=== PATIENT | male | born 1950 | race Asian ===

== ENCOUNTER 2019-01-05 05:14 | Emergency (ER) | payer MEDICARE, OTHER ==
[~2019-01-05] VITALS: Ht 165.1 cm; Wt 65.8 kg
[2019-01-05 05:17] VITALS: Ht 165.1 cm; Wt 65.8 kg
[2019-01-05] MEDS ORDERED: ONDANSETRON 4 MG INJ IV STA (06:07)
[2019-01-05] MEDS ORDERED: morphine 2 MG INJ IV STA (06:07)
[2019-01-05] MEDS ORDERED: IOHEXOL 300MG/ML 150 ML BTL ONE (07:38)
[2019-01-05] MEDS ORDERED: SOD CHLORIDE 0.9% 100 ML ONE (07:38)
[2019-01-05 08:16] VITALS: BP 133/84; PULSE 78; RESP 18
--- NOTE | 2019-01-05 08:27 | ERD ---
ER Documentation Chief Complaint Chief Complaint LEFT LOWER BACK PAIN, DYSURIA, URINARY FREQUENCY X'S 1 WEEK HPI 68-year-old male presents with his son for evaluation of flank pain back pain. According to the patient, over the last week, patient has had a nonspecific left lower back and flank pain. The pain occasionally radiates to his abdomen. Pain is associated with dysuria and urinary frequency. Patient reports no hematuria. Patient has had no fevers or chills or vomiting. Patient has had no diarrhea. The pain is nonspecific and rated as mild to moderate. Patient has had a previous abdominal aortic aneurysm repair and he was concerned that his symptoms might be related to this despite having previous evaluations of the aneurysm that was apparently normal postoperatively. ROS All systems reviewed and are negative except as per history of present illness. Allergies Allergies: Coded Allergies: No Known Allergy (Unverified , 01/05/19) PMhx/Soc History of Surgery: Yes (RT KNEE SX, ABDOMINAL ANEURYSM SX) Anesthesia Reaction: No Hx Neurological Disorder: No Hx Respiratory Disorders: No Hx Cardiac Disorders: Yes (HTN) Hx Psychiatric Problems: No Hx Miscellaneous Medical Probl: No Hx Alcohol Use: No Hx Substance Use: No Hx Tobacco Use: No Smoking Status: Never smoker FmHx Noncontributory for chief complaint Physical Exam Vitals Vital Signs Date Temp Pulse Resp B/P (MAP) Pulse Ox O2 O2 Flow FiO2 Time Delivery Rate 01/05/19 78 18 133/84 97 Room Air 08:16 (100) 01/05/19 97.8 18 148/81 96 Room Air 06:14 (103) 01/05/19 97.8 101 18 155/86 96 05:17 (109) Physical Exam GENERAL: The patient is well developed and appropriate for usual state of health in no apparent distress HEENT: Pupils equal, round, and reactive to light. EOMI. There is no scleral icterus. NECK: C-spine is soft and supple, there is no meningismus. There is no cervical lymphadenopathy. LUNGS: Clear to auscultation bilaterally. There are no rales, wheezes or rhonchi. HEART: Regular rate and rhythm, no murmurs, clicks, rubs or gallops. ABDOMEN: Soft, non-tender, non-distended. There are bowel sounds in all four quadrants. No rebound or guarding. No CVA tenderness EXTREMITIES: There is no peripheral cyanosis or edema. No focal swelling or erythema. NEURO: The patient moves all four extremities with 5/5 strength. Cranial nerves II - XII are intact. Normal gait. Alert and oriented SKIN: There is no apparent rash or petechiae. HEME/LYMPHATIC: There is no evidence of excessive bruising or lymphedema. PSYCHIATRIC: The patient does not appear anxious or depressed. Pulses: 2+ and equal bilaterally. Patient has vascular scar noted in the inguinal area. Result Diagram: 01/05/1930 01/05/19 0630 Results 24 hrs Laboratory Tests Test 01/05/19 06:30 White Blood Count 6.2 10^3/ul Red Blood Count 6.05 10^6/ul Hemoglobin 12.3 g/dl Hematocrit 38.7 % Mean Corpuscular Volume 64.0 fl Mean Corpuscular Hemoglobin 20.3 pg Mean Corpuscular Hemoglobin Concent 31.8 g/dl Red Cell Distribution Width 15.3 % Platelet Count 226 10^3/UL Mean Platelet Volume 10.1 fl Immature Granulocytes % 0.300 % Neutrophils % 67.4 % Lymphocytes % 24.8 % Monocytes % 6.7 % Eosinophils % 0.3 % Basophils % 0.5 % Nucleated Red Blood Cells % 0.0 /100WBC Immature Granulocytes # 0.020 10^3/ul Neutrophils # 4.2 10^3/ul Lymphocytes # 1.6 10^3/ul Monocytes # 0.4 10^3/ul Eosinophils # 0.0 10^3/ul Basophils # 0.0 10^3/ul Nucleated Red Blood Cells # 0.0 10^3/ul Prothrombin Time 12.3 Sec Prothrombin Time Ratio 1.0 INR International Normalized Ratio 0.90 Activated Partial Thromboplast Time 35.2 Sec Urine Color STRAW Urine Clarity CLEAR Urine pH 6.0 Urine Specific [place] 1.003 Urine Ketones TRACE mg/dL Urine Nitrite NEGATIVE mg/dL Urine Bilirubin NEGATIVE mg/dL Urine Urobilinogen NEGATIVE mg/dL Urine Leukocyte Esterase NEGATIVE [place]abela/ul Urine Hemoglobin NEGATIVE mg/dL Urine Glucose NEGATIVE mg/dL Urine Total Protein NEGATIVE mg/dl Sodium Level 136 mmol/L Potassium Level 3.3 mmol/L Chloride Level 98 mmol/L Carbon Dioxide Level 25 mmol/L Anion Gap 13 Blood Urea Nitrogen 12 mg/dl Creatinine 0.92 mg/dl Est Glomerular Filtrat Rate mL/min > 60 mL/min Glucose Level 145 mg/dl Calcium Level 9.8 mg/dl Total Bilirubin 1.0 mg/dl Direct Bilirubin 0.00 mg/dl Indirect Bilirubin 1.0 mg/dl Aspartate Amino Transf (AST/SGOT) 33 IU/L Alanine Aminotransferase (ALT/SGPT) 30 IU/L Alkaline Phosphatase 64 IU/L Troponin I < 0.012 ng/ml Total Protein 8.1 g/dl Albumin 4.6 g/dl Globulin 3.50 g/dl Albumin/Globulin Ratio 1.31 Lipase 147 U/L Current Medications Medications Dose Sig/Alayna Start Time Status Last (Trade) Ordered Route PRN Stop Time Admin Dose Reason Admin Morphine 2 mg ONCE STAT 01/05/19 DC 01/05/19 Sulfate IV 06:07 01/05/19 06:23 (morphine) 06:10 Ondansetron 4 mg ONCE STAT 01/05/19 DC 01/05/19 HCl (Zofran IV 06:07 01/05/19 06:23 Inj) 06:10 Iohexol 150 ml STK-MED 01/05/19 DC (Omnipaque ONCE .ROUTE 07:38 01/05/19 300mg/ ml) 07:39 Sodium 100 ml @ ud STK-MED 01/05/19 DC Chloride ONCE .ROUTE 07:38 01/05/19 07:39 Procedures/MDM Patient was taken to a room, seen and evaluated. Comfort measures were initiated. Diagnostic tests were ordered and reviewed. 3 LEAD RHYTHM STRIP: Normal sinus rhythm without ectopy EK lead EKG reviewed by myself: Normal Sinus Rhythm Left axis deviation, LVH Nonspecific ST and T wave changes without significant ST elevation Impression: Nonspecific EKG without evidence of obvious ischemia RADIOLOGY: Reviewed with the radiologist REEVALUATION: 0825: Diagnostic tests were appreciated. Serial examinations of the patient showed that he remained comfortable and hemodynamically stable MEDICAL DECISION MAKIN-year-old male with an extensive history of an aorta abdominal aortic aneurysm repair presents with flank pain of uncertain etiology with a number of other nonspecific symptoms. His diagnostic work-up focused on concerns regarding the aneurysm as well as other kidney infection, kidney stone and other issues. At this time, his diagnostic tests including his imaging st udies and labs demonstrate no evidence of urinary tract infection or kidney stone. Patient has no evidence of aneurysm at this time on his CT scan which demonstrates a patent graft and no signs of endoleak. Overall, patient is reassured, clinically well and is appropriate for outpatient supportive care at this time. Departure Diagnosis: Primary Impression: Flank pain Condition: Stable Patient Instructions: Flank Pain, Uncertain Cause Additional Instructions: See your doctor for follow-up as discussed. Take a copy of your test results, if appropriate, to this follow-up visit. See your doctor or return here if your symptoms do not improve as expected. At any time, please return to the emergency department for any change or worsening in her symptoms. KERRIE MELGAR Jan 05, 2019 08:27
== END 2019-01-05 08:42 | disposition home or self-care (01) ==
LOC: FTE 05:14 → E/R 08:42
DX: R10.9 Unspecified abdominal pain (principal); I10 Essential (primary) hypertension
CPT/HCPCS: 36415; 71045; 74177; 80053; 81003; 83690; 84484; 85025; 85610; 85730; 93005; 96374; 96375; 99285; J2270; J2405; Q9967

== ENCOUNTER 2019-01-07 22:21 | Emergency (ER) | payer MEDICARE, OTHER ==
[~2019-01-07] VITALS: Ht 162.6 cm; Wt 68.1 kg
[2019-01-07 22:22] VITALS: Ht 162.6 cm; Wt 68.1 kg
--- NOTE | 2019-01-07 23:53 | ERD ---
ER Documentation Chief Complaint Chief Complaint Nocturia HPI The patient is a 68-year-old male, presenting to the ER because of nocturia, constipation, denies fever, chills, neck pain, chest pain, dyspnea, abdominal pain, vomiting. He was seen 2 days ago for abdominal pain, had an unremarkable CT with IV contrast of abdomen/pelvis. He does not smoke nor drink. He was recently started on medication for BPH Past medical history: Hypertension, GERD, BPH Past surgical history: Right knee arthroscopy, abdominal aortic aneurysm repair ROS All systems reviewed and are negative except as per history of present illness. Medications Home Meds Active Scripts Polyethylene Glycol* (Miralax*) 17 Gm Powd.pack, 17 GM PO DAILY, #7 Prov:LINSEY CHURCH MD 01/08/19 Allergies Allergies: Coded Allergies: No Known Allergy (Unverified , 01/08/19) PMhx/Soc History of Surgery: Yes (RT KNEE SX, ABDOMINAL ANEURYSM REPAIR) Anesthesia Reaction: No Hx Neurological Disorder: No Hx Respiratory Disorders: No Hx Cardiac Disorders: Yes (HTN) Hx Psychiatric Problems: No Hx Miscellaneous Medical Probl: No Hx Alcohol Use: No Hx Substance Use: No Hx Tobacco Use: No Smoking Status: Never smoker Physical Exam Vitals Vital Signs Date Temp Pulse Resp B/P (MAP) Pulse Ox O2 O2 Flow FiO2 Time Delivery Rate 01/08/19 56 12 124/75 98 Room Air 01:56 (91) 01/07/19 97.0 64 18 143/82 98 22:22 (102) Physical Exam Const: No acute distress. Head: Atraumatic. Eyes: Normal Conjunctiva. ENT: Normal External Ears, Nose and Mouth. Neck: Full range of motion. No meningismus. Resp: Clear to auscultation bilaterally. Cardio: Regular rate and rhythm. Abd: Soft, non distended, normal bowel sounds, normal suprapubic discomfort, no right lower quadrant/right upper quadrant/epigastric/CVA tenderne ss Skin: No petechiae or rashes. Back: No midline or flank tenderness. Ext: No cyanosis, or edema. Neur: Awake and alert. No focal deficit Psych: Normal Mood and Affect. Result Diagram: 01/08/19 0020 01/08/19 0020 Results 24 hrs Laboratory Tests Test 01/08/19 00:20 01/08/19 00:35 White Blood Count 7.8 10^3/ul Red Blood Count 6.24 10^6/ul Hemoglobin 12.4 g/dl Hematocrit 39.9 % Mean Corpuscular Volume 63.9 fl Mean Corpuscular Hemoglobin 19.9 pg Mean Corpuscular Hemoglobin Concent 31.1 g/dl Red Cell Distribution Width 15.6 % Platelet Count 232 10^3/UL Mean Platelet Volume 9.7 fl Immature Granulocytes % 0.300 % Neutrophils % 56.2 % Lymphocytes % 34.6 % Monocytes % 7.7 % Eosinophils % 0.8 % Basophils % 0.4 % Nucleated Red Blood Cells % 0.0 /100WBC Immature Granulocytes # 0.020 10^3/ul Neutrophils # 4.4 10^3/ul Lymphocytes # 2.7 10^3/ul Monocytes # 0.6 10^3/ul Eosinophils # 0.1 10^3/ul Basophils # 0.0 10^3/ul Nucleated Red Blood Cells # 0.0 10^3/ul Sodium Level 132 mmol/L Potassium Level 3.5 mmol/L Chloride Level 93 mmol/L Carbon Dioxide Level 29 mmol/L Anion Gap 10 Blood Urea Nitrogen 11 mg/dl Creatinine 0.84 mg/dl Est Glomerular Filtrat Rate mL/min > 60 mL/min Glucose Level 130 mg/dl Calcium Level 9.8 mg/dl Total Bilirubin 1.2 mg/dl Direct Bilirubin 0.00 mg/dl Indirect Bilirubin 1.2 mg/dl Aspartate Amino Transf (AST/SGOT) 31 IU/L Alanine Aminotransferase (ALT/SGPT) 27 IU/L Alkaline Phosphatase 58 IU/L Total Protein 8.0 g/dl Albumin 4.6 g/dl Globulin 3.40 g/dl Albumin/Globulin Ratio 1.35 Lipase 313 U/L Bedside Urine pH (LAB) 7.0 Bedside Urine Protein (LAB) Negative Bedside Urine Glucose (UA) Negative Bedside Urine Ketones (LAB) Negative Bedside Urine Blood Trace-intact Bedside Urine Nitrite (LAB) Negative Bedside Urine Leukocyte Esterase (L Negative Current Medications Medications Dose Sig/Alayna Start Time Status Last (Trade) Ordered Route PRN Stop Time Admin Dose Reason Admin Bisacodyl 10 mg ONCE ONCE 01/08/19 DC 01/08/19 (Dulcolax [place] 00:30 00:30 Supp) 01/08/19 00:31 Procedures/MDM MEDICAL MAKING DECISION: The patient is a 68-year-old male, presenting with acute nocturia, most likely due to BPH, constipation. He was treated with Dulcolax suppository with good response and is stable for present follow-up The differential diagnoses considered include but are not limited to AAA leakage, cholelithiasis, cholecystitis, choledocholithiasis, cholangitis, pancreatitis, hepatitis, gastritis, peptic ulcer disease, gastric ulcer, appendicitis, cystitis, diverticulitis, partial small bowel obstruction. Departure Diagnosis: Primary Impression: Constipation Additional Impressions: BPH (benign prostatic hyperplasia) Anemia Condition: Good Comments He was discharged with MiraLAX I discussed the findings with the patient. I advised the patient to follow-up with the primary physician in about 1-2 days, sooner if needed and return if any concern. Disclaimer: Inadvertent spelling and grammatical errors are likely due to EHR/dictation software use and do not reflect on the overall quality of patient care. Also, please note that the electronic time recorded on this note does not necessarily reflect the actual time of the patient encounter. LINSEY CHURCH MD Jan 07, 2019 23:53
[2019-01-08] MEDS ORDERED: BISACODYL 10 MG SUPP PR ONE (00:30)
[2019-01-08] MEDS ORDERED: POLY17PO6 PO (02:51)
[2019-01-08] MEDS ORDERED: ATEN-51 PO (03:11)
[2019-01-08] MEDS ORDERED: LOSA100T15 PO (03:11)
[2019-01-08] MEDS ORDERED: NIFE30TA43 PO (03:11)
[2019-01-08] MEDS ORDERED: HYDR25TA6 PO (03:11)
[2019-01-08] MEDS ORDERED: TAMS-14 PO (03:11)
[2019-01-08 03:19] VITALS: BP 124/75; PULSE 60; RESP 19
== END 2019-01-08 03:20 | disposition home or self-care (01) ==
LOC: E/R 22:21
DX: K59.00 Constipation, unspecified (principal); I10 Essential (primary) hypertension; D64.9 Anemia, unspecified; N40.0 Benign prostatic hyperplasia without lower urinary tract symptoms; R40.2142 Coma scale, eyes open, spontaneous, at arrival to emergency department; R40.2362 Coma scale, best motor response, obeys commands, at arrival to emergency department; R40.2252 Coma scale, best verbal response, oriented, at arrival to emergency department
CPT/HCPCS: 36415; 80053; 81003; 83690; 85025; 99283

== ENCOUNTER 2019-01-08 18:12 | Inpatient (IN) | payer MEDICARE, OTHER ==
[~2019-01-08] VITALS: Ht 170.2 cm; Wt 72.0 kg
[~2019-01-08 18:12] MED LIST: ATEN-51 PO; HYDR25TA6 PO; LOSA100T15 PO; NIFE30TA43 PO; POLY17PO6 PO; TAMS-14 PO
[2019-01-08 18:31] VITALS: Ht 170.2 cm; Wt 72.0 kg
[2019-01-08] MEDS ORDERED: SOD CHLORIDE 0.9% 1,000 ML IV STA (18:44)
--- NOTE | 2019-01-08 18:50 | ERD ---
ER Documentation Chief Complaint Chief Complaint c/o dizziness , diff breathing , fall @ home this morning hemtoma on chin HPI 68-year-old male with a history of hypertension presenting after a syncopal episode at home. He was found by on the floor, unresponsive. She woke him up and he stated that he was feeling a headache and dizziness prior to passing out. He has been feeling this way for the past few days. He has already been seen in the ER twice prior to this. His last visit was yesterday. He states that he has been feeling dizzy and nauseated with few episodes of nonbloody vomiting. He has also complained of constipation with difficulty having a bowel movement for the past 5 days. He denies any recent fevers or chills. No associated chest pain, shortness of breath, abdominal pain, dysuria, or hematuria. No melena or hematochezia. ROS All systems reviewed and are negative except as per history of present illness. Medications Home Meds Active Scripts Polyethylene Glycol* (Miralax*) 17 Gm Powd.pack, 17 GM PO DAILY, #7 Prov:LINSEY CHURCH MD 01/08/19 Reported Medications Nifedipine* (Adalat CC*) 30 Mg Tablet.sa, 30 MG PO DAILY for 30 Days, #30 TAB 01/08/19 Atenolol* (Atenolol*) 25 Mg Tablet, 25 MG PO DAILY for 90 Days, #90 TAB 01/08/19 Losartan Potassium* (Losartan Potassium*) 100 Mg Tablet, 100 MG PO DAILY for 90 Days, #90 TAB 01/08/19 Tamsulosin Hcl* (Flomax*) 0.4 Mg Cap.er.24h, 0.4 MG PO QHS for 90 Days, #90 01/08/19 Hydrochlorothiazide* (Hydrochlorothiazide*) 25 Mg Tab, 25 MG PO DAILY for 90 Days, #90 TAB 01/08/19 Allergies Allergies: Coded Allergies: No Known Allergy (Unverified , 01/08/19) PMhx/Soc History of Surgery: Yes (RT KNEE SX, ABDOMINAL ANEURYSM REPAIR) Anesthesia Reaction: No Hx Neurological Disorder: No Hx Respiratory Disorders: No Hx Cardiac Disorders: Yes (HTN) Hx Psychiatric Problems: No Hx Miscellaneous Medical Probl: No Hx Alcohol Use: No Hx Substance Use: No Hx Tobacco Use: No Smoking Status: Never smoker FmHx Family History: No diabetes Physical Exam Vitals Vital Signs Date Temp Pulse Resp B/P (MAP) Pulse Ox O2 O2 Flow FiO2 Time Delivery Rate 01/08/19 71 16 149/98 99 Room Air 21:15 (115) 01/08/19 98.1 74 18 149/98 98 18:31 (115) Physical Exam Const: No acute distress Head: Atraumatic Eyes: Normal Conjunctiva, PERRLA, EOMI, no nystagmus. No periorbital ecchymosis ENT: Nose nontender. No facial tenderness to palpation. Contusion to the right chin with no significant tenderness of the mandible. No trismus. normal jaw opening and closing. No dental, lip, tongue injury noted. Neck: Full range of motion. No meningismus. No C-spine tenderness Resp: Clear to auscultation bilaterally Cardio: Regular rate and rhythm, no murmurs. 2+ distal pulses in all 4 extremities Abd: Soft, non tender, non distended. Normal bowel sounds Skin: No petechiae or rashes Back: No midline or flank tenderness Ext: No cyanosis, or edema. Normal to inspection and palpation without evid ence of trauma Neur: Awake and alert, oriented x3, normal speech, cranial nerves intact, strength and sensations intact in all 4 extremities. Psych: Normal Mood and Affect Result Diagram: 01/08/19185201/08/191851 Results 24 hrs Laboratory Tests Test 01/08/19 18:52 01/08/19 18:53 Sodium Level 127 mmol/L Potassium Level 3.4 mmol/L Chloride Level 90 mmol/L Carbon Dioxide Level 25 mmol/L Anion Gap 12 Blood Urea Nitrogen 13 mg/dl Creatinine 0.94 mg/dl Est Glomerular Filtrat Rate mL/min > 60 mL/min Glucose Level 189 mg/dl Calcium Level 9.4 mg/dl Troponin I < 0.012 ng/ml White Blood Count 9.6 10^3/ul Red Blood Count 5.93 10^6/ul Hemoglobin 11.9 g/dl Hematocrit 37.4 % Mean Corpuscular Volume 63.1 fl Mean Corpuscular Hemoglobin 20.1 pg Mean Corpuscular Hemoglobin Concent 31.8 g/dl Red Cell Distribution Width 14.9 % Platelet Count 206 10^3/UL Mean Platelet Volume 9.8 fl Immature Granulocytes % 0.300 % Neutrophils % 73.4 % Lymphocytes % 18.7 % Monocytes % 7.4 % Eosinophils % 0.1 % Basophils % 0.1 % Nucleated Red Blood Cells % 0.0 /100WBC Immature Granulocytes # 0.030 10^3/ul Neutrophils # 7.1 10^3/ul Lymphocytes # 1.8 10^3/ul Monocytes # 0.7 10^3/ul Eosinophils # 0.0 10^3/ul Basophils # 0.0 10^3/ul Nucleated Red Blood Cells # 0.0 10^3/ul Urine Color COLORLESS Urine Clarity CLEAR Urine pH 7.0 Urine Specific [place] 1.002 Urine Ketones NEGATIVE mg/dL Urine Nitrite NEGATIVE mg/dL Urine Bilirubin NEGATIVE mg/dL Urine Urobilinogen NEGATIVE mg/dL Urine Leukocyte Esterase NEGATIVE [place]abela/ul Urine Hemoglobin NEGATIVE mg/dL Urine Glucose NEGATIVE mg/dL Urine Total Protein NEGATIVE mg/dl Current Medications Medications Dose Sig/Alayna Start Time Status Last (Trade) Ordered Route PRN Stop Time Admin Dose Reason Admin Sodium 1,000 ml @ Q1H STAT 01/08/19 DC 01/08/19 Chloride 1,000 mls/hr IV 18:44 18:44 01/08/19 19:43 Ondansetron 4 mg ER BRIDGE 01/08/19 DC HCl (Zofran PRN IV 20:00 Inj) NAUSEA/VOMITI 01/08/19 20:55 NG 650 mg ER BRIDGE 01/08/19 DC Acetaminophen PRN PO 20:00 (Tylenol .MILD PAIN 01/08/19 20:55 Tab) 1-3 OR TEMP Sodium 1,000 ml @ [id number] IV 01/08/19 Chloride 75 mls/hr 20:44 IV Flush 3 ml PER 01/08/19 (NS 3 ml) PROTOCOL IV 21:00 Ondansetron 4 mg Q6H PRN 01/08/19 HCl (Zofran IV 21:00 Inj) NAUSEA/VOMITI NG 650 mg Q6H PRN 01/08/19 Acetaminophen PO .PAIN 1-3 21:00 (Tylenol OR TEMP Tab) Docusate 100 mg Q12H PRN 01/08/19 Sodium PO 21:00 (Colace) .CONSTIPATION Bisacodyl 5 mg DAILY PRN 01/08/19 (Dulcolax) PO 21:00 .CONSTIPATION Procedures/MDM EMERGENT LABS AND DIAGNOSTIC STUDIES: Lab Results above were reviewed and interpreted by me. CBC: no evidence of clinically significant anemia or evidence of infection BMP: hyponatremia, hypochloremia. No e/o acidosis, alkalosis, renal failure, diabetic ketoacidosis Troponin within normal limits, not indicative of cardiac ischemia EKG: Rate/Rhythm: Normal Sinus Rhythm QRS, ST, T-waves: No changes consistent w/ acute ischemia Impression: No evidence of ischemia or arrhythmia Radiology Results as interpreted by Radiology below were reviewed by Chidi Ross MD: chest x-ray shows no acute abnormalities CT head shows no acute abnormalities Initial Nursing notes reviewed. Previous Medical Records requested via the Electronic Health Record. EMERGENCY DEPARTMENT COURSE / MEDICAL DECISION MAKING: The patient presented after a syncopal episode. Vitals upon arrival were unremarkable and stable. Differential includes but is not limited to cardiac a rrhythmia or ischemia, pulmonary embolism, vasovagal syncope, situational syncope, dehydration with orthostatic hypotension, hemorrhage, sepsis, stroke ,ICH, hypoglycemia. I have a low suspicion for acute bacterial infection, seizure, stroke, or serious head injury. Blood sugar was normal. EKG showed no significant arrhythmia or ischemia. Labs were notable for hyponatremia and hypochloremia. Patient states that he just started taking "prostate medicine" last night. Otherwise there has been no changes to his medications. Chest Xray showed no acute abnormalities. Given the patients medical history and risk factors, occult etiology such as fatal dysrhythmia cannot be ruled out. I do not believe patient is safe for discharge and will need admission for telemetry monitoring and further workup. Accepting Care Team: Current data and ongoing care discussed. Time: Time of admission Primary Provider: Dr. Edgardo Beck Diagnosis: Primary Impression: Syncope and collapse Additional Impressions: Chin contusion Encounter type: initial encounter Qualified Codes: S00.83XA - Contusion of other part of head, initial encounter Hyponatremia Condition: RAYA King MD Jan 08, 2019 18:50
[2019-01-08] MEDS ORDERED: ONDANSETRON 4 MG INJ IV PRN ×2 (20:00→21:00)
[2019-01-08] MEDS ORDERED: ACETAMINOPHEN 325 MG TAB PO PRN ×2 (20:00→21:00)
[2019-01-08] MEDS ORDERED: DOCUSATE SODIUM 100 MG CAP PO PRN (21:00)
[2019-01-08] MEDS ORDERED: NACL 0.9% 3 ML SYG IV SCH (21:00)
[2019-01-08] MEDS ORDERED: BISACODYL (EC) 5 MG TAB PO PRN (21:00)
--- NOTE | 2019-01-08 21:57 | HP ---
Date/Time of Note Date/Time of Note DATE: 01/08/19 TIME: 21:57 Assessment/Plan VTE Prophylaxis SCD applied (from Nsg): Yes Pharmacological prophylaxis: NA/contraindicated Pharm contraindication: low risk/ambulating Lines/Catheters IV Catheter Type (from Nrsg): Saline Lock Assessment/Plan Hospital Course This is a 68-year-old male being admitted to the telemetry floor for: #1 syncope: Secondary to cardiogenic versus neurocardiogenic versus orthostatic versus polypharmacy: Patient does appear to be dehydrated. Will hydrate patient with normal saline. His sodium is 127. He has been having some nausea vomiting. We will check an echocardiogram. Carotid Doppler ultrasound. Orthostatic vital signs. Consider cardiology consultation. Will monitor on telemetry. Continue nifedipine, losartan, will hold atenolol and hydrochlorothiazide and monitor blood pressures. #2 hyponatremia: Likely secondary to dehydration, HCTZ will hydrate patient with normal saline. Monitor closely. Will hold HCTZ #3 Abdominal pain: Patient's recent CT of the abdomen pelvis did not show any acute abnormalities, however there was signs of extensive stenosis in the femoral arteries. As etiology of his pain is not fully clear I will proceed with a CT angiogram of the abdomen and pelvis to further assess. Will consult vascular surgery . We will also check a lactic acid level. His abdomen is soft. #4 microcytic anemia: We will check stool occult blood, iron stores. Consult GI dr. hancock #5 history of AAA: Patient status post repair. Most recent CT did not show any signs of leak or any worsening of his AAA. We will continue to monitor #6 Hypertension: We will continue losartan, nifedipine will hold atenolol and hydrochlorthiazide. Will check orthostatic vital signs. #7 DVT GI prophylaxis: SCDs, no GI prophylaxis indicated Further treatment strategy will be implemented as per the clinical course. Result Diagram: 01/08/19185201/08/191851 Results 24hrs Laboratory Tests Test 01/08/19 18:52 01/08/19 18:53 Sodium Level 127 L Potassium Level 3.4 L Chloride Level 90 L Carbon Dioxide Level 25 Anion Gap 12 Blood Urea Nitrogen 13 Creatinine 0.94 Est Glomerular Filtrat Rate mL/min > 60 Glucose Level 189 Calcium Level 9.4 Troponin I < 0.012 White Blood Count 9.6 # Red Blood Count 5.93 Hemoglobin 11.9 L Hematocrit 37.4 L Mean Corpuscular Volume 63.1 L Mean Corpuscular Hemoglobin 20.1 L Mean Corpuscular Hemoglobin Concent 31.8 L Red Cell Distribution Width 14.9 H Platelet Count 206 Mean Platelet Volume 9.8 Immature Granulocytes % 0.300 Neutrophils % 73.4 Lymphocytes % 18.7 Monocytes % 7.4 Eosinophils % 0.1 Basophils % 0.1 Nucleated Red Blood Cells % 0.0 Immature Granulocytes # 0.030 Neutrophils # 7.1 Lymphocytes # 1.8 Monocytes # 0.7 Eosinophils # 0.0 Basophils # 0.0 Nucleated Red Blood Cells # 0.0 Urine Color COLORLESS Urine Clarity CLEAR Urine pH 7.0 Urine Specific Frederic 1.002 L Urine Ketones NEGATIVE Urine Nitrite NEGATIVE Urine Bilirubin NEGATIVE Urine Urobilinogen NEGATIVE Urine Leukocyte Esterase NEGATIVE Urine Hemoglobin NEGATIVE Urine Glucose NEGATIVE Urine Total Protein NEGATIVE HPI/ROS Admit Date/Time Admit Date/Time Jan 08, 2019 at 19:59 Hx of Present Illness Chief complaint: Syncopal episode 68-year-old male with a history of hypertension presenting after a syncopal episode at home. He was found by on the floor, unresponsive. She woke him up and he stated that he was feeling a headache and dizziness prior to passing out. He has been feeling this way for the past few days. He has already been seen in the ER twice prior to this. His last visit was yesterday. He states that he has been feeling dizzy and nauseated with few episodes of nonbloody vomiting. He has also complained of constipation with difficulty having a bowel movement for the past 5 days. He denies any recent fevers or chills. No associated chest pain, shortness of breath, abdominal pain, dysuria, or desmond turia. No melena or hematochezia. Allergies: NKDA Medications: Atenolol 25 mg p.o. daily Hydrochlorothiazide 25 mg p.o. daily MiraLAX 17 g packet daily Flomax 0.4 p.o. nightly Losartan 100 mg p.o. daily Nifedipine 30 mg p.o. daily ROS Const: As per HPI Eyes : No pain discharge or redness or change in visual acuity ENT: No pain, sore throat, congestion, congestion, dysphagia or discharge Respiratory: No shortness of breath, cough, sputum, wheezing, or pleuritic pain Cardiovascular: No chest pain, palpitation, PND, or edema GI : As per HPI Genitourinary: No dysuria, hematuria, flank pain , discharge or CVA tenderness Musculoskeletal: No joint pain, back pain, neck pain, restricted range of motion in neck or joints Skin: No rash, bruising or hives Neuro: As per HPI Endocrine: No polyuria, polydipsia, temperature intolerance Psych: No hallucination, depression, anxiety or suicidal ideation PMH/Family/Social Past Medical History htn, AAA repair Medications Current Medications Sodium Chloride 1,000 ml @ 75 mls/hr [id number] IV ; Start 01/08/19 at 20:44 IV Flush (NS 3 ml) 3 ml PER PROTOCOL IV ; Start 01/08/19 at 21:00 Ondansetron HCl (Zofran Inj) 4 mg Q6H PRN IV NAUSEA/VOMITING; Start 01/08/19 at 21:00 Acetaminophen (Tylenol Tab) 650 mg Q6H PRN PO .PAIN 1-3 OR TEMP; Start 01/08/19 at 21:00 Docusate Sodium (Colace) 100 mg Q12H PRN PO .CONSTIPATION; Start 01/08/19 at 21:00 Bisacodyl (Dulcolax) 5 mg DAILY PRN PO .CONSTIPATION; Start 01/08/19 at 21:00 Coded Allergies: No Known Allergy (Unverified , 01/08/19) Past Surgical History AAA repair, R knee Family History Significant Family History: no pertinent family hx Social History Alcohol Use: none Smoking Status: Never smoker Drug Use: none Exam/Review of Systems Vital Signs Vitals Vital Signs Date Temp Pulse Resp B/P (MAP) Pulse Ox O2 O2 Flow FiO2 Time Delivery Rate 01/08/19 71 16 149/98 99 Room Air 21:15 (115) 01/08/19 98.1 18:31 Exam Exam General: Patient currently lying in bed, he does report abdominal pain, he does report having a syncopal episode he also reports itching.. HEENT: Atraumatic, normocephalic. The pupils are equal, round and reactive. Extraocular motor are intact, mucous membranes dry Neck: Supple with full range of motion. No rigidity or meningismus Chest: Nontender Lungs: Clear to auscultation bilaterally no crackles rales or wheezing Heart: Normal S1-S2, Regular rhythm and rate. No murmur, S3, or S4 Abdomen: Soft , mild tenderness palpation of the suprapubic area,, nondistended , bowel sounds are present. No guarding no rebound tenderness , No masses or organomegaly. No costovertebral temporal angle mass Extremities: Normal to inspection, no edema no cyanosis Neurologic: Normal mental status, speech normal, cranial nerves II through XII are intact, motor and sensory are intact, gait not assessed Additional Comments PROCEDURE: CT Brain without contrast. CLINICAL INDICATION: Syncope TECHNIQUE: A CT of the brain was performed on a multidetector CT scanner utilizing axial imaging from the skull base through the vertex without IV contrast. Multiplanar reformatted images were made. Images were reviewed on a PACS workstation. The CTDIvol is 37 mGy and the DLP is 634 mGycm. DICOM images are available. One or more of the following dose reduction techniques were utilized: 1.) Automated exposure control 2.) Adjustment of the mA +/- kV according to patient's size 3.) Use of iterative reconstruction technique. COMPARISON: None FINDINGS: There is no intracranial hemorrhage, mass effect, or midline shift. No extra- axial fluid collection is seen. There is mild to moderate age appropriate dif fuse cerebral volume loss with sulcal and ventricular dilatation. Ventricles are of normal configuration. Mild periventricular white matter disease is present in both cerebral hemispheres with no associated mass effect. Chronic lacunar infarct is noted in the right basal ganglia. There are vascular calcifications the base of the brain. the g[place] white matter differentiation appears well- preserved. The visualized paranasal sinuses and osseous structures are grossly unremarkable. IMPRESSION: Age-appropriate atrophy. Mild white matter disease compatible with chronic small vessel ischemia. Chronic lacunar infarct right basal ganglia. No intracranial hemorrhage, mass or evidence of acute transcortical infarct. .Roosevelt Haas MD, MD Date Time Electronically viewed and signed by .Roosevelt Haas MD, on 01/08/2019 19:51 .A/ CC: RAYA ALVAREZ MD [id number] PROCEDURE: XR Chest. CLINICAL INDICATION: Syncope TECHNIQUE: Frontal chest x-ray was obtained. COMPARISON: None. FINDINGS: The heart is not enlarged. There is calcified plaque in the wall of the aorta. Mediastinum is not widened. No hilar masses seen. Lungs are clear of any infiltrates. There is no effusion or pneumothorax. The osseous structures appear normal. IMPRESSION: No evidence for active cardiopulmonary disease. .Roosevelt Haas MD, MD Date Time Electronically viewed and signed by .Roosevelt Haas MD, MD on 01/08/2019 20:11 .A/ CC: RAYA ALVAREZ MD [phone] MAGUI GOODRICH Jan 08, 2019 21:57
[2019-01-08] MEDS: SOD CHLORIDE 0.9% 1,000 ML IV SCH (22:33)
[2019-01-08 22:43] VITALS: BP 120/72; PULSE 63; RESP 18
[2019-01-09] VITALS (15 sets, daily range): BP systolic 109–149; BP diastolic 67–84; PULSE 60–89; RESP 18–20
[2019-01-09] MEDS ORDERED: DIPHENHYDRAMINE 50 MG CAP PO ONE (04:00)
[2019-01-09] MEDS ORDERED: morphine 2 MG INJ IV ONE (05:45)
[2019-01-09] MEDS ORDERED: IOHEXOL 100 ML ONE (07:37)
[2019-01-09] MEDS ORDERED: SOD CHLORIDE 0.9% 100 ML ONE (07:37)
[2019-01-09] MEDS ORDERED: IOHEXOL 350MG/ML 50 ML BTL ONE (07:38)
--- NOTE | 2019-01-09 09:05 | CONS ---
Assessment/Plan Assessment/Plan Hospital Course (Demo Recall) 68 yo male presents for syncopal episode at home 1. Chronic constipation 2. Abdominal pain 3. Nausea and vomiting x 1 4. Unintentional weight loss of 6-10 lbs over 5 months 5. Microcytic hypochromic anemia 6. Hyponatremia 7. Syncopal episode 8. HTN 9. H/O AAA 10. Extensive stenosis of femoral arteries -Vascular surgery DR Ortiz consulted Plan: Correct hyponatremia per primary CEA and CA 19-9 Anemia work up. Protonix 40 mg iv qd EGD and colonoscopy plan for tomorrow if Na corrected. Spoke with son and patient about both procedures, risks and benefits explained. All questions answered. They consent to procedure. NO anti coagulants please. NPO p MN. CBC, CMP, INR in am. Bowel prep to start at 1700. CT abd angiogram today Pt examined and plan of care d/w Dr. Aguilera Consultation Date/Type/Reason Admit Date/Time Jan 08, 2019 at 19:59 Date/Time of Note DATE: 01/09/19 TIME: 08:40 Hx of Present Illness 68 yo male with pmh of htn presented with a syncopal episode. Pt found by his at home on floor unresponsive. Pt c/o headache and dizziness for a few weeks which has worsened over last 5 days days and prior to passing out. He did vomit once two days ago with no hematemesis or coffee ground emesis. Pt is chronically constipated unless he takes stool softener. He does feel his abdomen is bloated and c/o abd pain mid abdomen bilaterally. He has lost about 6 lbs over last 5 months. NO h/o cancer. Son states patient has overall not been feeling well for a few months and has been worsening over last couple of weeks. Denies SOB or CP. States he had fever and chills for one day two days ago. Hgb 11.9 has been stable since admission yesterday. Na 127. WBC wnl. BRain CT: Age-appropriate atrophy. Mild white matter disease compatible with chronic small vessel ischemia. Chronic lacunar infarct right basal ganglia. No intracranial hemorrhage, mass or evidence of acute transcortical infarct. Past Medical History Home Meds Active Scripts Polyethylene Glycol* (Miralax*) 17 Gm Powd.pack, 17 GM PO DAILY, #7 Prov:LINSEY CHURCH MD 01/08/19 Reported Medications Nifedipine* (Adalat CC*) 30 Mg Tablet.sa, 30 MG PO DAILY for 30 Days, #30 TAB 01/08/19 Atenolol* (Atenolol*) 25 Mg Tablet, 25 MG PO DAILY for 90 Days, #90 TAB 01/08/19 Losartan Potassium* (Losartan Potassium*) 100 Mg Tablet, 100 MG PO DAILY for 90 Days, #90 TAB 01/08/19 Tamsulosin Hcl* (Flomax*) 0.4 Mg Cap.er.24h, 0.4 MG PO QHS for 90 Days, #90 01/08/19 Hydrochlorothiazide* (Hydrochlorothiazide*) 25 Mg Tab, 25 MG PO DAILY for 90 Days, #90 TAB 01/08/19 Medications Current Medications Sodium Chloride 1,000 ml @ 75 mls/hr [id number] IV Last administered on 01/08/19at 22:33; Admin Dose 75 MLS/HR; Start 01/08/19 at 20:44 IV Flush (NS 3 ml) 3 ml PER PROTOCOL IV ; Start 01/08/19 at 21:00 Ondansetron HCl (Zofran Inj) 4 mg Q6H PRN IV NAUSEA/VOMITING Last administered on 01/08/19at 22:32; Admin Dose 4 MG; Start 01/08/19 at 21:00 Acetaminophen (Tylenol Tab) 650 mg Q6H PRN PO .PAIN 1-3 OR TEMP; Start 01/08/19 at 21:00 Losartan Potassium (Cozaar) 100 mg DAILY PO ; Start 01/09/19 at 09:00 Nifedipine (Procardia Xl) 30 mg DAILY PO ; Start 01/09/19 at 09:00 Bisacodyl (Dulcolax) 5 mg DAILY PO ; Start 01/09/19 at 09:00 Docusate Sodium (Colace) 100 mg Q12H PO ; Start 01/09/19 at 09:00 Allergies: Coded Allergies: No Known Allergy (Unverified , 01/08/19) Social History Alcohol Use: none Smoking Status: Never smoker Drug Use: none Exam/Review of Systems Exam Vitals Vital Signs Date Temp Pulse Resp B/P (MAP) Pulse Ox O2 O2 Flow FiO2 Time Delivery Rate 01/09/19 74 20 143/81 98 Room Air 07:30 (101) 01/09/19 97.6 07:26 Results Result Diagram: 01/09/19 0724 01/08/19 1852 Results 24hrs Laboratory Tests Test 01/08/19 18:52 01/08/19 18:53 01/09/19 06:45 01/09/19 07:24 Sodium Level 127 L Potassium Level 3.4 L Chloride Level 90 L Carbon Dioxide Level 25 Anion Gap 12 Blood Urea Nitrogen 13 Creatinine 0.94 Est Glomerular > 60 Filtrat Rate mL/min Glucose Level 189 Calcium Level 9.4 Troponin I < 0.012 White Blood Count 9.6 # 7.4 # Red Blood Count 5.93 5.94 Hemoglobin 11.9 L 11.9 L Hematocrit 37.4 L 38.0 L Mean Corpuscular 63.1 L 64.0 L Volume Mean Corpuscular 20.1 L 20.0 L Hemoglobin Mean Corpuscular 31.8 L 31.3 L Hemoglobin Concent Red Cell 14.9 H 15.2 H Distribution Width Platelet Count 206 223 Mean Platelet Volume 9.8 10.2 Immature 0.300 0.400 Granulocytes % Neutrophils % 73.4 72.3 Lymphocytes % 18.7 16.8 Monocytes % 7.4 9.9 Eosinophils % 0.1 0.3 Basophils % 0.1 0.3 Nucleated Red Blood 0.0 0.0 Cells % Immature 0.030 0.030 Granulocytes # Neutrophils # 7.1 5.4 Lymphocytes # 1.8 1.3 Monocytes # 0.7 0.7 Eosinophils # 0.0 0.0 Basophils # 0.0 0.0 Nucleated Red Blood 0.0 0.0 Cells # Urine Color COLORLESS COLORLESS Urine Clarity CLEAR CLEAR Urine pH 7.0 7.0 Urine Specific 1.002 L 1.001 L [place] Urine Ketones NEGATIVE NEGATIVE Urine Nitrite NEGATIVE NEGATIVE Urine Bilirubin NEGATIVE NEGATIVE Urine Urobilinogen NEGATIVE NEGATIVE Urine Leukocyte NEGATIVE NEGATIVE Esterase Urine Hemoglobin NEGATIVE NEGATIVE Urine Glucose NEGATIVE NEGATIVE Urine Total Protein NEGATIVE NEGATIVE Medications Medication Current Medications Sodium Chloride 1,000 ml @ 75 mls/hr [id number] IV Last administered on 01/08/19at 22:33; Admin Dose 75 MLS/HR; Start 01/08/19 at 20:44 IV Flush (NS 3 ml) 3 ml PER PROTOCOL IV ; Start 01/08/19 at 21:00 Ondansetron HCl (Zofran Inj) 4 mg Q6H PRN IV NAUSEA/VOMITING Last administered on 01/08/19at 22:32; Admin Dose 4 MG; Start 01/08/19 at 21:00 Acetaminophen (Tylenol Tab) 650 mg Q6H PRN PO .PAIN 1-3 OR TEMP; Start 01/08/19 at 21:00 Losartan Potassium (Cozaar) 100 mg DAILY PO ; Start 01/09/19 at 09:00 Nifedipine (Procardia Xl) 30 mg DAILY PO ; Start 01/09/19 at 09:00 Bisacodyl (Dulcolax) 5 mg DAILY PO ; Start 01/09/19 at 09:00 Docusate Sodium (Colace) 100 mg Q12H PO ; Start 01/09/19 at 09:00 BRANDON MORALES Jan 09, 2019 08:56
[2019-01-09] MEDS ORDERED: PANTOPRAZOLE 40 MG INJ IV ONE (09:30)
[2019-01-09] MEDS: SOD CHLORIDE 0.9% 1,000 ML IV SCH ×3 (10:04→23:24)
[2019-01-09] MEDS: NIFEdipine (XL) 30 MG TAB PO SCH (10:23)
[2019-01-09] MEDS: BISACODYL (EC) 5 MG TAB PO SCH (10:23)
[2019-01-09] MEDS: DOCUSATE SODIUM 100 MG CAP PO SCH ×2 (10:24→20:44)
[2019-01-09] MEDS: LOSARTAN 50 MG TAB PO SCH (10:24)
--- NOTE | 2019-01-09 14:47 | PN ---
Date/Time of Note Date/Time of Note DATE: 01/09/19 TIME: 14:16 Assessment/Plan VTE Prophylaxis Risk score (from Ns)>0 risk: 2 SCD applied (from Ns): Yes Pharmacological prophylaxis: LMWH Lines/Catheters IV C[facility] Type (from [facility]): Peripheral IV Urinary Cath still in place: No Assessment/Plan Assessment/Plan 1. Syncope, likely orthostatic from dehydration due to poor intake, follow up with echo and carotid US 2. Hyponatremia due to vomiting and poor intake, resolved 3. 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 Ortiz, NORBERT occlusion does not give ischemic bowel, no treatment needed. 4. Abdominal pain, unclear etiology, follow up with GI 5. HTN, stable 6. PVD, s/p , aspirin and statin, follow up with Dr. Ortiz 6. AAA 7. Mild microcytic anemia, iron panel 8. Right kidney lesion, US 9. Dyslipidemia, lipitor 10. DVT prophylaxis: lovenox Result Diagram: 01/09/19 0724 01/09/19 0724 Results 24hrs Laboratory Tests Test 01/08/19 18:52 01/08/19 18:53 01/09/19 06:45 01/09/19 07:21 Sodium Level 127 L Potassium Level 3.4 L Chloride Level 90 L Carbon Dioxide Level 25 Anion Gap 12 Blood Urea Nitrogen 13 Creatinine 0.94 Est Glomerular > 60 Filtrat Rate mL/min Glucose Level 189 Calcium Level 9.4 Troponin I < 0.012 White Blood Count 9.6 # Red Blood Count 5.93 Hemoglobin 11.9 L Hematocrit 37.4 L Mean Corpuscular 63.1 L Volume Mean Corpuscular 20.1 L Hemoglobin Mean Corpuscular 31.8 L Hemoglobin Concent Red Cell 14.9 H Distribution Width Platelet Count 206 Mean Platelet Volume 9.8 Immature 0.300 Granulocytes % Neutrophils % 73.4 Lymphocytes % 18.7 Monocytes % 7.4 Eosinophils % 0.1 Basophils % 0.1 Nucleated Red Blood 0.0 Cells % Immature 0.030 Granulocytes # Neutrophils # 7.1 Lymphocytes # 1.8 Monocytes # 0.7 Eosinophils # 0.0 Basophils # 0.0 Nucleated Red Blood 0.0 Cells # Urine Color COLORLESS COLORLESS Urine Clarity CLEAR CLEAR Urine pH 7.0 7.0 Urine Specific 1.002 L 1.001 L Crawford Urine Ketones NEGATIVE NEGATIVE Urine Nitrite NEGATIVE NEGATIVE Urine Bilirubin NEGATIVE NEGATIVE Urine Urobilinogen NEGATIVE NEGATIVE Urine Leukocyte NEGATIVE NEGATIVE Esterase Urine Hemoglobin NEGATIVE NEGATIVE Urine Glucose NEGATIVE NEGATIVE Urine Total Protein NEGATIVE NEGATIVE Urine Osmolality 83 L Urine Random Sodium Absolute 0.049 Reticulocyte Count Percent Reticulocyte 0.9 Count Ferritin 361.0 H Carcinoembryonic 1.3 Antigen CA 19-9 Antigen 7.1 Vitamin B12 Level 349 Folate 8.2 Test 01/09/19 07:24 01/09/19 10:07 White Blood Count 7.4 # Red Blood Count 5.94 Hemoglobin 11.9 L Hematocrit 38.0 L Mean Corpuscular 64.0 L Volume Mean Corpuscular 20.0 L Hemoglobin Mean Corpuscular 31.3 L Hemoglobin Concent Red Cell 15.2 H Distribution Width Platelet Count 223 Mean Platelet Volume 10.2 Immature 0.400 Granulocytes % Neutrophils % 72.3 Lymphocytes % 16.8 Monocytes % 9.9 Eosinophils % 0.3 Basophils % 0.3 Nucleated Red Blood 0.0 Cells % Immature 0.030 Granulocytes # Neutrophils # 5.4 Lymphocytes # 1.3 Monocytes # 0.7 Eosinophils # 0.0 Basophils # 0.0 Nucleated Red Blood 0.0 Cells # Sodium Level 136 Potassium Level 3.7 Chloride Level 100 # Carbon Dioxide Level 26 Anion Gap 10 Blood Urea Nitrogen 9 Creatinine 0.86 Est Glomerular > 60 Filtrat Rate mL/min Glucose Level 124 # Hemoglobin A1c 5.8 Osmolality 275 L Lactic Acid Level 1.4 Calcium Level 9.0 Magnesium Level 2.1 Total Bilirubin 0.8 Direct Bilirubin 0.00 Indirect Bilirubin 0.8 Aspartate Amino 35 Transf (AST/SGOT) Alanine 26 Aminotransferase (AL T/SGPT) Alkaline Phosphatase 45 Total Protein 6.9 # Albumin 4.1 Globulin 2.80 Albumin/Globulin 1.46 Ratio Triglycerides Level 124 Cholesterol Level 201 H LDL Cholesterol, 144 Calculated HDL Cholesterol 32 Cholesterol/HDL 6.2 Ratio Thyroid Stimulating 1.100 Hormone (TSH) Prothrombin Time 13.2 Prothrombin Time 1.0 Ratio INR International 0.99 Normalized Ratio Subjective 24 Hr Interval Summary Free Text/Dictation 4 months lower abdominal pain, poor intake, more pain after eating. still has lower abdominal pain. no vomiting. less dizzy Exam/Review of Systems Exam Vitals Vital Signs Date Temp Pulse Resp B/P (MAP) Pulse Ox O2 O2 Flow FiO2 Time Delivery Rate 01/09/19 79 20 133/68 98 Room Air 11:21 (89) 01/09/19 97.6 11:17 Constitutional: alert, oriented, well developed Psych: no complaints, nl mood/affect Head: normocephalic, atraumatic Eyes: nl conjunctiva, EOMI, nl lids ENMT: nl external ears & nose, nl lips & teeth, nl nasal mucosa & septum Neck: supple, non-tender Respiratory: clear to auscultation, normal air movement; No congested cough, No crackles/rales, No diminished breath sounds, No intercostal retraction, No labored breathing, No respirations, No tactile fremitus, No wheezing, No other Cardiovascular: regular rate and rhythm, nl pulses; No bruits, No diastolic murmur, No edema, No gallop, No irregular rhythm, No jugular venous distention (JVD), No murmurs/extra sounds, No rub, No systolic murmur, No S3, No S4, No other Gastrointestinal: soft, nl liver, spleen, non-tender Musculoskeletal: nl extremities to inspection Extremities: normal pulses; No calf tenderness, No cyanosis, No clubbing, No edema, No pitting pedal edema, No palpable cord, No tenderness, No other Neurological: INSTRUMENT INSTALLER II-XII intact, nl mental status, nl speech, nl strength Results Results 24hrs Laboratory Tests Test 01/08/19 18:52 01/08/19 18:53 01/09/19 06:45 01/09/19 07:21 Sodium Level 127 L Potassium Level 3.4 L Chloride Level 90 L Carbon Dioxide Level 25 Anion Gap 12 Blood Urea Nitrogen 13 Creatinine 0.94 Est Glomerular > 60 Filtrat Rate mL/min Glucose Level 189 Calcium Level 9.4 Troponin I < 0.012 White Blood Count 9.6 # Red Blood Count 5.93 Hemoglobin 11.9 L Hematocrit 37.4 L Mean Corpuscular 63.1 L Volume Mean Corpuscular 20.1 L Hemoglobin Mean Corpuscular 31.8 L Hemoglobin Concent Red Cell 14.9 H Distribution Width Platelet Count 206 Mean Platelet Volume 9.8 Immature 0.300 Granulocytes % Neutrophils % 73.4 Lymphocytes % 18.7 Monocytes % 7.4 Eosinophils % 0.1 Basophils % 0.1 Nucleated Red Blood 0.0 Cells % Immature 0.030 Granulocytes # Neutrophils # 7.1 Lymphocytes # 1.8 Monocytes # 0.7 Eosinophils # 0.0 Basophils # 0.0 Nucleated Red Blood 0.0 Cells # Urine Color COLORLESS COLORLESS Urine Clarity CLEAR CLEAR Urine pH 7.0 7.0 Urine Specific 1.002 L 1.001 L Crawford Urine Ketones NEGATIVE NEGATIVE Urine Nitrite NEGATIVE NEGATIVE Urine Bilirubin NEGATIVE NEGATIVE Urine Urobilinogen NEGATIVE NEGATIVE Urine Leukocyte NEGATIVE NEGATIVE Esterase Urine Hemoglobin NEGATIVE NEGATIVE Urine Glucose NEGATIVE NEGATIVE Urine Total Protein NEGATIVE NEGATIVE Urine Osmolality 83 L Urine Random Sodium Absolute 0.049 Reticulocyte Count Percent Reticulocyte 0.9 Count Ferritin 361.0 H Carcinoembryonic 1.3 Antigen CA 19-9 Antigen 7.1 Vitamin B12 Level 349 Folate 8.2 Test 01/09/19 07:24 01/09/19 10:07 White Blood Count 7.4 # Red Blood Count 5.94 Hemoglobin 11.9 L Hematocrit 38.0 L Mean Corpuscular 64.0 L Volume Mean Corpuscular 20.0 L Hemoglobin Mean Corpuscular 31.3 L Hemoglobin Concent Red Cell 15.2 H Distribution Width Platelet Count 223 Mean Platelet Volume 10.2 Immature 0.400 Granulocytes % Neutrophils % 72.3 Lymphocytes % 16.8 Monocytes % 9.9 Eosinophils % 0.3 Basophils % 0.3 Nucleated Red Blood 0.0 Cells % Immature 0.030 Granulocytes # Neutrophils # 5.4 Lymphocytes # 1.3 Monocytes # 0.7 Eosinophils # 0.0 Basophils # 0.0 Nucleated Red Blood 0.0 Cells # Sodium Level 136 Potassium Level 3.7 Chloride Level 100 # Carbon Dioxide Level 26 Anion Gap 10 Blood Urea Nitrogen 9 Creatinine 0.86 Est Glomerular > 60 Filtrat Rate mL/min Glucose Level 124 # Hemoglobin A1c 5.8 Osmolality 275 L Lactic Acid Level 1.4 Calcium Level 9.0 Magnesium Level 2.1 Total Bilirubin 0.8 Direct Bilirubin 0.00 Indirect Bilirubin 0.8 Aspartate Amino 35 Transf (AST/SGOT) Alanine 26 Aminotransferase (AL T/SGPT) Alkaline Phosphatase 45 Total Protein 6.9 # Albumin 4.1 Globulin 2.80 Albumin/Globulin 1.46 Ratio Triglycerides Level 124 Cholesterol Level 201 H LDL Cholesterol, 144 Calculated HDL Cholesterol 32 Cholesterol/HDL 6.2 Ratio Thyroid Stimulating 1.100 Hormone (TSH) Prothrombin Time 13.2 Prothrombin Time 1.0 Ratio INR International 0.99 Normalized Ratio Medications Medication Current Medications Sodium Chloride 1,000 ml @ 75 mls/hr [id number] IV Last administered on 7/11/19at 12:10; Admin Dose 75 MLS/HR; Start 01/08/19 at 20:44 IV Flush (NS 3 ml) 3 ml PER PROTOCOL IV ; Start 01/08/19 at 21:00 Ondansetron HCl (Zofran Inj) 4 mg Q6H PRN IV NAUSEA/VOMITING Last administered on 01/08/19at 22:32; Admin Dose 4 MG; Start 01/08/19 at 21:00 Acetaminophen (Tylenol Tab) 650 mg Q6H PRN PO .PAIN 1-3 OR TEMP; Start 01/08/19 at 21:00 Losartan Potassium (Cozaar) 100 mg DAILY PO Last administered on 01/09/19at 10:24; Admin Dose 100 MG; Start 01/09/19 at 09:00 Nifedipine (Procardia Xl) 30 mg DAILY PO Last administered on 01/09/19at 10:23; Admin Dose 30 MG; Start 01/09/19 at 09:00 Bisacodyl (Dulcolax) 5 mg DAILY PO Last administered on 01/09/19at 10:23; Admin Dose 5 MG; Start 01/09/19 at 09:00 Docusate Sodium (Colace) 100 mg Q12H PO Last administered on 01/09/19at 10:24; Admin Dose 100 MG; Start 01/09/19 at 09:00 Bisacodyl (Dulcolax) 10 mg ONCE ONCE PO ; Start 01/09/19 at 17:00; Stop 01/09/19 at 17:01 Polyethylene Glycol/ Electrolytes (Golytely) 2,000 ml ONCE ONCE PO ; Start 01/09/19 at 17:00; Stop 01/09/19 at 17:01 Polyethylene Glycol/ Electrolytes (Golytely) 2,000 ml 2nd Dose (GI Prep) ONCE PO ; Start 01/09/19 at 20:00; Stop 01/09/19 at 20:01 Bisacodyl (Dulcolax) 10 mg 2nd Dose (GI Prep) ONCE PO ; Start 01/09/19 at 20:00; Stop 01/09/19 at 20:01 EMMETT KAPOOR MD Jan 09, 2019 14:26
[2019-01-09] MEDS: ASPIRIN (EC) 81 MG TAB PO SCH (16:03)
[2019-01-09] MEDS ORDERED: PEG/ELECTROLYTES 4L BTL PO ONE ×2 (17:00→20:00)
[2019-01-09] MEDS ORDERED: BISACODYL (EC) 5 MG TAB PO ONE ×2 (17:00→20:00)
--- NOTE | 2019-01-09 18:52 | RADRPT ---
Echocardiogram Report Patient Name: RICHY FRANCOPatient ID: [id number] : 1950 (68y 3m)Study Date: 01/09/2019 7:14:08 AM Gender: MAccession #: [id number] Tech: Nat Seay RDCS Location: [id number] Ref.Physician: MAGUI GOODRICH Height(Cm): BSA: Weight(Kg): Quality: AdequateOrder Physician: MAGUI GOODRICH Account #: Procedures: Echocardiographic Report: Transthoracic echocardiogram with complete 2D, M-Mode, and doppler examination. Indications: Syncope. Measurements: 2D/M Mode Doppler Measurement Value Normal Range Measurement Value Normal Range LVIDd 2D 4.4 [ 4.2 - 5.8 ] cm AV Peak Madi 1.5 [ 100.0 - 170.0 ] cm/sec LVIDs 2D 2.6 [ 2.5 - 4.0 ] cm AV Peak PG 9.0 [ 2.0 - 9.0 ] mmHg LVPWd 2D 1.3 [ 0.6 - 1.0 ] cm AI Peak PG 73.0 mmHg IVSd 2D 1.3 [ 0.6 - 1.0 ] cm AI Peak Madi 4.3 cm/sec AoR Diam 2D 3.2 [ 2.6 - 3.4 ] cm AI PHT 698.0 msec EDV 2D 88.6 [ 62.0 - 150.0 ] ml LVOT Peak Madi 1.0 [ 70.0 - 110.0 ] cm/sec ESV 2D 24.1 [ 21.0 - 61.0 ] ml LVOT Peak PG 4.0 [ 2.0 - 6.0 ] mmHg EF 2D 72.8 [ 52.0 - 72.0 ] percent MV E Peak Madi 0.6 [ 60.0 - 130.0 ] cm/sec LA Dimen 2D 2.9 [ 3.0 - 4.0 ] cm MV A Peak Madi 0.8 [ 100.0 - 120.0 ] cm/sec MV E/A 0.7 [ 0.8 - 1.5 ] ratio MV Decel Time 187 [ 104 - 258 ] msec Lat E` Madi 0.1 [ 10.0 - 15.0 ] cm/sec Lateral E/E` 6.9 [ 1.0 - 2.0 ] ratio Med E` Madi 0.0 cm/sec MV E/A 0.7 [ 0.8 - 1.5 ] ratio TR Peak Madi 1.8 [ 100.0 - 280.0 ] cm/sec TR Peak PG 13.0 mmHg RVSP 16.0 [ 10.0 - 36.0 ] mmHg RA Pressure 3.0 mmHg Findings: Left Ventricle: Normal left ventricular systolic function. Normal left ventricular cavity size. Mild concentric left ventricular hypertrophy. Ejection fraction is visually estimated at 60 %. Tissue Doppler/Mitral Doppler indices are consistent with impaired relaxation (Stage I diastolic dysfunction). Right Ventricle: Normal right ventricular size. Normal right ventricular systolic function. Left Atrium: The left atrium is normal in size. Right Atrium: The right atrium is normal in size. Mitral Valve: Normal appearance and function of the mitral valve with trace physiologic regurgitation. Aortic Valve: No hemodynamically significant aortic stenosis by doppler. Aortic cusps appear moderately calcified. Mild to moderate aortic valve regurgitation. Tricuspid Valve: Normal appearance of the tricuspid valve. The estimated Peak RVSP is 16 mmHg. There is trace tricuspid regurgitation. Pulmonic Valve: Normal pulmonic valve appearance. Pericardium: Normal pericardium with no significant pericardial effusion. Aorta: Normal aortic root. IVC: Normal size and normal respiratory collapse consistent with normal right atrial pressure. Conclusions: Normal left ventricular systolic function. Normal left ventricular cavity size. Mild concentric left ventricular hypertrophy. Ejection fraction is visually estimated at 60 %. Tissue Doppler/Mitral Doppler indices are consistent with impaired relaxation (Stage I diastolic dysfunction). Normal right ventricular size. Normal right ventricular systolic function. The left atrium is normal in size. The right atrium is normal in size. No hemodynamically significant aortic stenosis by doppler. Mild to moderate aortic valve regurgitation. No significant valvular stenosis or regurgitation seen of remaining visualized valves. Normal pericardium with no significant pericardial effusion. Electronically Signed By: Oumar Dillard 2019-01-09 18:52:10 PDT
--- NOTE | 2019-01-09 20:37 | CONS ---
DATE OF ADMISSION: 01/08/2019 DATE OF CONSULTATION: 01/09/2019 REFERRING PHYSICIAN: Dr. Iban Goodrich REASON FOR CONSULTATION: AAA and lower extremity peripheral arterial disease. HISTORY OF PRESENT ILLNESS: This is a 68-year-old gentleman. He is Prydein[place]. He speaks good Mongolian. He was admitted after a syncopal episode. He fell down, he hit his chin. He has been feeling poorly for a few weeks, having headaches and dizziness. He had some GI symptoms a few days ago, but none recently. He currently has no complaints. His abdominal pain and trouble eating that he had now has resolved. I was asked to see him. He had an abdominal CT that shows AAA, it has been repaired, he had an endovascular AAA repair about a year ago down in [facility] with Dr. Wilson. He also has some fairly severe calcified peripheral arterial disease in both femoral arteries and Dr. Goodrich called me to see him from a vascular standpoint. PAST MEDICAL HISTORY: Significant for hypertension, AAA that has been repaired. CTA was done today, it shows no endoleak and it is actually fairly small, it is not sure where it started at, but it is now in the 4.3 cm range. He has widely patent celiac and SMA although the NORBERT is occluded which is a consequence of the endograft repair. There is no sign of mesenteric ischemia. There was noted to be a mass in his right kidney, a fairly large mass on the CT. His other previous medical history is significant for weight, about 10 pounds over the last 5 months. He has chronic constipation and he is anemic, hyponatremic. No history of lower extremity arterial intervention. No history of coronary artery disease. MEDICATIONS: Currently consist of: 1. Protonix. 2. Cozaar. 3. Procardia 4. Dulcolax. 5. Tylenol. 6. Zofran. ALLERGIES: NO KNOWN DRUG ALLERGIES. SOCIAL HISTORY: He is a former smoker. He has not smoked in many years. He lives with his and son, he lives down in [facility] and that is where he went for his endovascular AAA repair last year. He does not drink or use any illicit drugs. FAMILY HISTORY: Noncontributory. He does have 5 children. REVIEW OF SYSTEMS: He currently has no complaints. He denies any chest pain or shortness of breath. No nausea, vomiting or diarrhea. No abdominal or back pain. He has chronic constipation. He has not had any further syncopal episodes since he came in. He has been voiding without any difficulty. PHYSICAL EXAMINATION: GENERAL: He is an elderly Prydeinig gentleman. He is in no acute distress. He speaks Mongolian quite well. He is fluent. VITAL SIGNS: He has been afebrile. His blood pressure is 133/68, heart rate 79, respiratory rate is 20, 98% sat on room air. NECK: He has 2+ radial, brachial, and carotid pulses bilaterally. LUNGS: Clear. HEART: Regular rate and rhythm. ABDOMEN: Soft, nontender, nondistended, no palpable AAA or other mass. EXTREMITIES: He has got 2+ femoral pulses bilaterally, 2+ popliteal pulses bilaterally, on the right the DP and PT are 1+, on the left they are 3+. His feet are warm and pink and well perfused. LABORATORY DATA: His lab values were all essentially normal. He has a normal creatinine, normal white count, cholesterol slightly elevated, and again he had the CTA of the abdomen done today that shows no evidence of mesenteric ischemia, he has widely patent, SMA, celiac, and both renal arteries, he has an infrarenal abdominal aortic aneurysm repair, looks like a [employer] device, it has what looks like a good seal, I do not see any endoleak, at least no early endoleak, and it is less than 4.5 cm. He has extensive calcification in the femoral arteries, worse on the right than the left, it looks like almost subtotal occlusion at the distal common femoral, lot of calcium and a just sort of a trickle of flow getting through into the superficial femoral, but downstream the vessel looked good down to the midthigh, and there is just a lot of calcification down distally as well, but he has palpable pedal pulses. IMPRESSION: Status post endovascular abdominal aortic aneurysm repair, the graft looks to be in good position. I do not see any sign of an endoleak at least on the early imaging but delayed in the week when he would be an issue causing his abdominal pain. This aneurysm is not very large, there is no sign of an extravasation or inflammation. He does have diffuse bilateral lower extremity arterial calcification and atherosclerosis but denies any symptoms. He walks well. I asked him about walking, he walks with his regularly without any difficulty and has no claudication, no chest pain. He has some numbness in the left thigh but other than that has no complaints as far as his lower extremity arteries or any type of vascular insufficiency. He has already been seen by GI and he is going to have a full GI workup. The renal mass is concerning and will need to be evaluated, it is 3.4 cm in the inferior pole of the right kidney. I am going to order an arterial duplex just to get a better idea of how severe the stenosis in the right common femoral artery is, but without any symptoms I would not recommend any intervention, and it is something to keep an eye on in the future if it has gotten worse. I would be happy to follow him along with you, I will see him back in the office once he is discharged as well, for further followup of his AAA repair in the future. Dictated By: STEFAN WAGONER/KIERA Conf#: [id number] DID#: [id number] CC: IBAN GOODRICH MD;*EndCC* MTDD
[2019-01-09] MEDS: ATORVASTATIN 20 MG TAB PO SCH (20:44)
[2019-01-10] VITALS (13 sets, daily range): BP systolic 90–170; BP diastolic 63–89; PULSE 60–85; RESP 16–26
[2019-01-10] MEDS: SOD CHLORIDE 0.9% 1,000 ML IV SCH (01:00)
[2019-01-10] MEDS: ENOXAPARIN 40 MG/0.4 ML SYG SC SCH (09:00)
[2019-01-10] MEDS: LOSARTAN 50 MG TAB PO SCH (09:10)
[2019-01-10] MEDS: NIFEdipine (XL) 30 MG TAB PO SCH (09:10)
[2019-01-10] MEDS: ASPIRIN (EC) 81 MG TAB PO SCH (09:10)
[2019-01-10] MEDS: BISACODYL (EC) 5 MG TAB PO SCH (09:10)
[2019-01-10] MEDS: DOCUSATE SODIUM 100 MG CAP PO SCH ×2 (09:11→20:45)
[2019-01-10] MEDS ORDERED: POTASSIUM CHLORIDE (SR) 20 MEQ TAB PO STA (10:12)
[2019-01-10] MEDS: BALSAM PERU/CASTOR OIL 60 GM TUBE TOP SCH ×2 (13:00→20:47)
--- NOTE | 2019-01-10 13:50 | PN ---
Date/Time of Note Date/Time of Note DATE: 01/10/19 TIME: 13:44 Assessment/Plan VTE Prophylaxis Risk score (from Ns)>0 risk: 5 SCD applied (from Ns): Yes Pharmacological prophylaxis: LMWH Lines/Catheters IV Catheter Type (from [facility] Peripheral IV Urinary Cath still in place: No Assessment/Plan Assessment/Plan 1. Syncope, orthostatic from dehydration due to poor intake, unremarkable echo and carotid US 2. Hyponatremia due to vomiting and poor intake, resolved 3. 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 Ortiz, NORBERT occlusion does not give ischemic bowel, no treatment needed. 4. Abdominal pain, unclear etiology, EGD/colonoscopy today 5. HTN, stable 6. PVD, s/p , aspirin and statin, follow up with Dr. Ortiz 6. AAA 7. Mild microcytic anemia, iron panel 8. Right kidney lesion, cyst on US 9. Dyslipidemia, lipitor 10. DVT prophylaxis: lovenox Result Diagram: 01/10/19 0559 01/10/19 0559 Results 24hrs Laboratory Tests Test 01/09/19 20:45 01/10/19 05:59 Stool Occult Blood NEGATIVE White Blood Count 7.0 Red Blood Count 5.70 Hemoglobin 11.5 L Hematocrit 37.0 L Mean Corpuscular Volume 64.9 L Mean Corpuscular Hemoglobin 20.2 L Mean Corpuscular Hemoglobin Concent 31.1 L Red Cell Distribution Width 15.9 H Platelet Count 232 Mean Platelet Volume 10.3 Immature Granulocytes % 0.400 Neutrophils % 62.9 Lymphocytes % 27.7 Monocytes % 7.3 Eosinophils % 1.1 Basophils % 0.6 Nucleated Red Blood Cells % 0.0 Immature Granulocytes # 0.030 Neutrophils # 4.4 Lymphocytes # 1.9 Monocytes # 0.5 Eosinophils # 0.1 Basophils # 0.0 Nucleated Red Blood Cells # 0.0 Prothrombin Time 13.1 Prothrombin Time Ratio 1.0 INR International Normalized Ratio 0.98 Activated Partial Thromboplast Time 33.7 Sodium Level 142 Potassium Level 3.4 L Chloride Level 107 Carbon Dioxide Level 28 Anion Gap 7 Blood Urea Nitrogen 12 Creatinine 0.82 Est Glomerular Filtrat Rate mL/min > 60 Glucose Level 118 Calcium Level 8.7 Total Bilirubin 0.5 Direct Bilirubin 0.00 Indirect Bilirubin 0.5 Aspartate Amino Transf (AST/SGOT) 36 Alanine Aminotransferase (ALT/SGPT) 29 Alkaline Phosphatase 49 Total Protein 6.7 Albumin 3.8 Globulin 2.90 Albumin/Globulin Ratio 1.31 Subjective 24 Hr Interval Summary Free Text/Dictation no abdominal pain today Exam/Review of Systems Exam Vitals Vital Signs Date Temp Pulse Resp B/P (MAP) Pulse Ox O2 O2 Flow FiO2 Time Delivery Rate 01/10/19 98.2 67 20 159/84 98 Room Air 11:12 (109) Intake and Output 01/09/19 01/09/19 01/10/19 1515:00 23:00 07:00 IntakeIntake Total 1140 ml 980 ml 4000 ml OutputOutput Total 2150 ml 650 ml BalanceBalance -1010 ml 330 ml 4000 ml Constitutional: alert, oriented, well developed Psych: no complaints, nl mood/affect Head: normocephalic, atraumatic Eyes: nl conjunctiva, EOMI, nl lids ENMT: nl external ears & nose, nl lips & teeth, nl nasal mucosa & septum Neck: supple, non-tender Respiratory: clear to auscultation, normal air movement; No congested cough, No crackles/rales, No diminished breath sounds, No intercostal retraction, No labored breathing, No respirations, No tactile fremitus, No wheezing, No other Cardiovascular: regular rate and rhythm, nl pulses; No bruits, No diastolic murmur, No edema, No gallop, No irregular rhythm, No jugular venous distention (JVD), No murmurs/extra sounds, No rub, No systolic murmur, No S3, No S4, No other Gastrointestinal: soft, nl liver, spleen, non-tender Musculoskeletal: nl extremities to inspection Extremities: normal pulses; No calf tenderness, No cyanosis, No clubbing, No edema, No pitting pedal edema, No palpable cord, No tenderness, No other Neurological: [employer] II-XII intact, nl mental status, nl speech, nl strength Results Results 24hrs Laboratory Tests Test 01/09/19 20:45 01/10/19 05:59 Stool Occult Blood NEGATIVE White Blood Count 7.0 Red Blood Count 5.70 Hemoglobin 11.5 L Hematocrit 37.0 L Mean Corpuscular Volume 64.9 L Mean Corpuscular Hemoglobin 20.2 L Mean Corpuscular Hemoglobin Concent 31.1 L Red Cell Distribution Width 15.9 H Platelet Count 232 Mean Platelet Volume 10.3 Immature Granulocytes % 0.400 Neutrophils % 62.9 Lymphocytes % 27.7 Monocytes % 7.3 Eosinophils % 1.1 Basophils % 0.6 Nucleated Red Blood Cells % 0.0 Immature Granulocytes # 0.030 Neutrophils # 4.4 Lymphocytes # 1.9 Monocytes # 0.5 Eosinophils # 0.1 Basophils # 0.0 Nucleated Red Blood Cells # 0.0 Prothrombin Time 13.1 Prothrombin Time Ratio 1.0 INR International Normalized Ratio 0.98 Activated Partial Thromboplast Time 33.7 Sodium Level 142 Potassium Level 3.4 L Chloride Level 107 Carbon Dioxide Level 28 Anion Gap 7 Blood Urea Nitrogen 12 Creatinine 0.82 Est Glomerular Filtrat Rate mL/min > 60 Glucose Level 118 Calcium Level 8.7 Total Bilirubin 0.5 Direct Bilirubin 0.00 Indirect Bilirubin 0.5 Aspartate Amino Transf (AST/SGOT) 36 Alanine Aminotransferase (ALT/SGPT) 29 Alkaline Phosphatase 49 Total Protein 6.7 Albumin 3.8 Globulin 2.90 Albumin/Globulin Ratio 1.31 Medications Medication Current Medications Sodium Chloride 1,000 ml @ 75 mls/hr [id number] IV Last administered on 01/10/19at 01:00; Admin Dose 75 MLS/HR; Start 01/08/19 at 20:44 IV Flush (NS 3 ml) 3 ml PER PROTOCOL IV ; Start 01/08/19 at 21:00 Ondansetron HCl (Zofran Inj) 4 mg Q6H PRN IV NAUSEA/VOMITING Last administered on 01/08/19at 22:32; Admin Dose 4 MG; Start 01/08/19 at 21:00 Acetaminophen (Tylenol Tab) 650 mg Q6H PRN PO .PAIN 1-3 OR TEMP; Start 01/08/19 at 21:00 Losartan Potassium (Cozaar) 100 mg DAILY PO Last administered on 01/10/19 09:10; Admin Dose 100 MG; Start 01/09/19 at 09:00 Nifedipine (Procardia Xl) 30 mg DAILY PO Last administered on 01/10/19at 09:10; Admin Dose 30 MG; Start 01/09/19 at 09:00 Bisacodyl (Dulcolax) 5 mg DAILY PO Last administered on 01/10/19 09:10; Admin Dose 5 MG; Start 01/09/19 at 09:00 Docusate Sodium (Colace) 100 mg Q12H PO Last administered on 01/10/19at 09:11; Admin Dose 100 MG; Start 01/09/19 at 09:00 Aspirin (Halfprin) 81 mg DAILY PO Last administered on 01/10/19at 09:10; Admin Dose 81 MG; Start 01/09/19 at 14:30 Atorvastatin Calcium (Lipitor) 20 mg HS PO Last administered on 01/09/19at 20:44; Admin Dose 20 MG; Start 01/09/19 at 21:00 Enoxaparin Sodium (Lovenox) 40 mg DAILY SC ; Start 01/10/19 at 09:00 EMMETT KAPOOR MD Jan 10, 2019 13:50
[2019-01-10] MEDS ORDERED: PROPOFOL 20 ML ONE (14:36)
--- NOTE | 2019-01-10 14:47 | PREAC ---
Date/Time of Note Date/Time of Note DATE: 01/10/19 TIME: 14:40 Anesthesia Eval and Record Evaluation Time Pre-Procedure Interview DATE: 01/10/19 TIME: 14:40 Age 68 Sex male NPO: 8 hrs Preoperative diagnosis Abdominal pain, N/V, weight loss, chronic constipation Planned procedure EGD, colonoscopy Past Medical History Past Medical History: Includes Cardio: HTN Surgery & Anesthesia Issues No known issue Meds Anticoagulation: No Beta Carrie within 24 hr: Yes Active Scripts Polyethylene Glycol* (Miralax*) 17 Gm Powd.pack, 17 GM PO DAILY, #7 Prov:LINSEY CHURCH MD 01/08/19 Reported Medications Nifedipine* (Adalat CC*) 30 Mg Tablet.sa, 30 MG PO DAILY for 30 Days, #30 TAB 01/08/19 Atenolol* (Atenolol*) 25 Mg Tablet, 25 MG PO DAILY for 90 Days, #90 TAB 01/08/19 Losartan Potassium* (Losartan Potassium*) 100 Mg Tablet, 100 MG PO DAILY for 90 Days, #90 TAB 01/08/19 Tamsulosin Hcl* (Flomax*) 0.4 Mg Cap.er.24h, 0.4 MG PO QHS for 90 Days, #90 01/08/19 Hydrochlorothiazide* (Hydrochlorothiazide*) 25 Mg Tab, 25 MG PO DAILY for 90 Days, #90 TAB 01/08/19 Current Medications Sodium Chloride 1,000 ml @ 75 mls/hr [id number] IV Last administered on 01/10/19at 01:00; Admin Dose 75 MLS/HR; Start 01/08/19 at 20:44 IV Flush (NS 3 ml) 3 ml PER PROTOCOL IV ; Start 01/08/19 at 21:00 Ondansetron HCl (Zofran Inj) 4 mg Q6H PRN IV NAUSEA/VOMITING Last administered on 01/08/19at 22:32; Admin Dose 4 MG; Start 01/08/19 at 21:00 Acetaminophen (Tylenol Tab) 650 mg Q6H PRN PO .PAIN 1-3 OR TEMP; Start 01/08/19 at 21:00 Losartan Potassium (Cozaar) 100 mg DAILY PO Last administered on 01/10/19at 09:10; Admin Dose 100 MG; Start 01/09/19 at 09:00 Nifedipine (Procardia Xl) 30 mg DAILY PO Last administered on 01/10/19 09:10; Admin Dose 30 MG; Start 01/09/19 at 09:00 Bisacodyl (Dulcolax) 5 mg DAILY PO Last administered on 01/10/19 09:10; Admin Dose 5 MG; Start 01/09/19 at 09:00 Docusate Sodium (Colace) 100 mg Q12H PO Last administered on 01/10/19 09:11; Admin Dose 100 MG; Start 01/09/19 at 09:00 Aspirin (Halfprin) 81 mg DAILY PO Last administered on 01/10/19 09:10; Admin Dose 81 MG; Start 01/09/19 at 14:30 Atorvastatin Calcium (Lipitor) 20 mg HS PO Last administered on 01/09/19at 20:44; Admin Dose 20 MG; Start 01/09/19 at 21:00 Enoxaparin Sodium (Lovenox) 40 mg DAILY SC ; Start 01/10/19 at 09:00 Meds reviewed: Yes Allergies Coded Allergies: No Known Allergy (Unverified , 01/08/19) Allergies Reviewed: Yes Labs/Studies Labs Reviewed: Reviewed by anesthesiologist Result Diagram: 01/10/19 0559 01/10/19 0559 Laboratory Tests 01/10/19 05:59 test: N/A Pre-procedure Exam Last vitals Vital Signs Date Temp Pulse Resp B/P (MAP) Pulse Ox O2 O2 Flow FiO2 Time Delivery Rate 01/10/19 98.2 67 20 159/84 98 Room Air 11:12 (109) Airway: Adequate mouth opening Mallampati: Mallampati I Teeth: Normal Lung: Normal Heart: Normal ASA Physical Status ASA physical status: 2 Emergency: None Planned Anesthetic General/MAC: MAC Planned Pain Management Parenteral pain med Pre-operative Attestations Prior to commencing anesthesia and surgery, the patient was re-evaluated, there was verification of: *The patient's identity *The results of appropriate recent lab work and preoperative vital signs *The above evaluation not changing prior to induction *Anesthetic plan, risk benefits, alternative and complications discussed with patient/family; questions answered; patient/family understands, accepts and wishes to proceed. SAUNDRA HUTTON MD Jan 10, 2019 14:47
--- NOTE | 2019-01-10 15:10 | RADRPT ---
Vent Rate: 87 bpm RR Interval: 692 msec [place] Interval: 178 msec QRS Duration: 106 msec QT Interval: 363 msec QTC Interval: 436 msec P-R-T [place]: 32 - -23 - 50 degrees Sinus rhythm...normal P axis, V-rate 50- 99 Electronically Signed By: Maurizio Easley
--- NOTE | 2019-01-10 17:06 | PAC ---
Date/Time of Note Date/Time of Note DATE: 01/10/19 TIME: 17:05 Post-Anesthesia Notes Post-Anesthesia Note Last documented vital signs Vital Signs Date Temp Pulse Resp B/P (MAP) Pulse Ox O2 O2 Flow FiO2 Time Delivery Rate 01/10/19 64 20 135/81 96 Room Air 15:49 (99) 01/10/19 98.0 15:22 Activity: WNL Respiratory function: WNL Cardiovascular function: WNL Mental status: Baseline Pain reasonably controlled: Yes Hydration appropriate: Yes Nausea/Vomiting absent: Yes Comments BT: 98.5 SAUNDRA HUTTON MD Jan 10, 2019 17:06
[2019-01-10] MEDS: ATORVASTATIN 20 MG TAB PO SCH (20:45)
[2019-01-11 00:06] VITALS: BP 152/80; PULSE 65; RESP 18
[2019-01-11] MEDS: SOD CHLORIDE 0.9% 1,000 ML IV SCH ×2 (02:04→03:00)
[2019-01-11 04:38] VITALS: BP 151/76; PULSE 58; RESP 18
[2019-01-11 07:11] VITALS: BP 165/94; PULSE 63; RESP 18
[2019-01-11 07:13] VITALS: BP 166/100
[2019-01-11] MEDS: ASPIRIN (EC) 81 MG TAB PO SCH (09:30)
[2019-01-11] MEDS: NIFEdipine (XL) 30 MG TAB PO SCH (09:31)
[2019-01-11] MEDS: LOSARTAN 50 MG TAB PO SCH (09:31)
[2019-01-11] MEDS: DOCUSATE SODIUM 100 MG CAP PO SCH (09:31)
[2019-01-11] MEDS: BISACODYL (EC) 5 MG TAB PO SCH (09:31)
[2019-01-11] MEDS: ENOXAPARIN 40 MG/0.4 ML SYG SC SCH (09:32)
[2019-01-11] MEDS: BALSAM PERU/CASTOR OIL 60 GM TUBE TOP SCH (09:34)
[2019-01-11 10:59] VITALS: BP 177/87; PULSE 78; RESP 16
[2019-01-11] MEDS ORDERED: PANT40TA4 PO (12:21)
--- NOTE | 2019-01-11 12:22 | PDOCDIS ---
Discharge Instructions DIAGNOSIS Discharge Diagnosis Gastritis Syncope CONDITION [id number] Patient Condition: [id number] Stable FOLLOW UP/APPOINTMENTS Follow-up Plan Take your medications as prescribed Follow up with your primary doctor for further evaluation Return to the hospital if you have any concerning symptoms SADI REYNOSO MD Jan 11, 2019 12:22
[2019-01-11] MEDS ORDERED: PANTOPRAZOLE (EC) 40 MG TAB PO SCH (12:30)
--- NOTE | 2019-01-11 13:10 | DS ---
Date/Time of Note Date/Time of Note DATE: 01/11/19 TIME: 13:07 Discharge Summary Admission/Discharge Info Admit Date/Time Jan 08, 2019 at 23:14 Discharge Date/Time Discharge Diagnosis Gastritis Syncope Patient Condition: Stable Hospital Course The patient was admitted with a syncopal event as well as complaint of postprandial pain leading to food avoidance and weight loss over the previous month His syncope he was ruled out for an ACS with serial biomarkers and normal e chocardiography. He was monitored on telemetry without arrhythmia. He was found to have a microcytic anemia with normal iron stores. In fact his ferritin was mildly elevated. He underwent endoscopy with normal colonoscopy and EGD showing gastritis. He also underwent abdominal angiography which showed "1. Hepatic steatosis. 2. There is an exophytic nonspecific 3.4 cm hypodense lesion arising from the inferior pole of the right kidney. Follow-up is recommended exclude neoplasm. 3. There is an infrarenal distal aortic kissing bi iliac stent graft. There is associated 4.3 cm saccular infrarenal abdominal aortic aneurysm. Delayed images are required in order to exclude endoleak. 4. There is lack of contrast calcification of the proximal inferior mesenteric artery. There is also ostial stenosis of the inferior mesenteric artery. 5. The arteries in the calves, specifically the anterior, posterior tibial and peroneal arteries. are severely peripherally calcified and are unable to be evaluated for patency on this exam. 6. 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 Ortiz was consulted who felt that the stenoses seen on abdominal CT angiography did not explain his symptoms that were not requiring any intervention at this time. Also felt his endograft was functioning appropriately and recommended outpatient follow-up. It is not exactly clear what is causing the patient's abdominal symptoms but given the gastritis we prescribed a PPI trial and we will see in the coming weeks if that alleviates his symptoms. He will follow-up for further care with his primary care doctor and he was notified to the importance of following up of the renal lesion Home Meds Active Scripts Polyethylene Glycol* (Miralax*) 17 Gm Powd.pack, 17 GM PO DAILY, #7 Prov:LINSEY CHURCH MD 01/08/19 Reported Medications Nifedipine* (Adalat CC*) 30 Mg Tablet.sa, 30 MG PO DAILY for 30 Days, #30 TAB 01/08/19 Atenolol* (Atenolol*) 25 Mg Tablet, 25 MG PO DAILY for 90 Days, #90 TAB 01/08/19 Losartan Potassium* (Losartan Potassium*) 100 Mg Tablet, 100 MG PO DAILY for 90 Days, #90 TAB 01/08/19 Tamsulosin Hcl* (Flomax*) 0.4 Mg Cap.er.24h, 0.4 MG PO QHS for 90 Days, #90 01/08/19 Hydrochlorothiazide* (Hydrochlorothiazide*) 25 Mg Tab, 25 MG PO DAILY for 90 Days, #90 TAB 01/08/19 Follow-up Plan Take your medications as prescribed Follow up with your primary doctor for further evaluation Return to the hospital if you have any concerning symptoms Primary Care Provider Not On Staff Doctor Pending Labs Laboratory Tests Test 01/11/19 06:11 White Blood Count 7.6 10^3/ul (4.8-10.8) Red Blood Count 5.66 10^6/ul (4.70-6.10) Hemoglobin 11.4 g/dl (14.0-18.0) Hematocrit 37.7 % (42.0-52.0) Mean Corpuscular Volume 66.6 fl (82.0-101.0) Mean Corpuscular Hemoglobin 20.1 pg (29.0-33.0) Mean Corpuscular Hemoglobin Concent 30.2 g/dl (32.0-37.0) Red Cell Distribution Width 15.9 % (11.5-14.5) Platelet Count 206 10^3/UL (140-415) Mean Platelet Volume 9.6 fl (7.4-10.4) Immature Granulocytes % 0.100 % (0.001-0.429) Neutrophils % 65.8 % (39.0-77.0) Lymphocytes % 25.6 % (15.0-51.0) Monocytes % 6.2 % (0.0-11.0) Eosinophils % 1.8 % (0.0-7.0) Basophils % 0.5 % (0.0-2.0) Nucleated Red Blood Cells % 0.0 /100WBC (0.0-0.0) Immature Granulocytes # 0.010 10^3/ul (0.0-0.031) Neutrophils # 5.0 10^3/ul (1.6-7.5) Lymphocytes # 1.9 10^3/ul (0.8-2.9) Monocytes # 0.5 10^3/ul (0.3-0.9) Eosinophils # 0.1 10^3/ul (0.0-0.5) Basophils # 0.0 10^3/ul (0.0-0.1) Nucleated Red Blood Cells # 0.0 10^3/ul (0.0-0.0) Sodium Level 140 mmol/L (135-144) Potassium Level 3.9 mmol/L (3.5-5.1) Chloride Level 105 mmol/L (97-110) Carbon Dioxide Level 28 mmol/L (21-31) Anion Gap 7 (5-13) Blood Urea Nitrogen 11 mg/dl (7-20) Creatinine 0.82 mg/dl (0.61-1.24) Est Glomerular Filtrat Rate mL/min > 60 mL/min (>60) Glucose Level 113 mg/dl (70-220) Calcium Level 8.9 mg/dl (8.4-10.2) SADI REYNOSO MD Jan 11, 2019 13:10
--- NOTE | 2019-01-11 14:39 | CONS ---
Assessment/Plan Assessment/Plan Assessment/Plan (Daily) Assessment/Plan Assessment/Plan Hospital Course (Demo Recall) 68 yo male presents for syncopal episode at home 1. Chronic constipation 2. Abdominal pain 3. Nausea and vomiting x 1 4. Unintentional weight loss of 6-10 lbs over 5 months 5. Microcytic hypochromic anemia 6. Hyponatremia 7. Syncopal episode 8. HTN 9. H/O AAA 10. Extensive stenosis of femoral arteries -Vascular surgery DR Ortiz consulted Plan Patient's renal mass needs to be followed as an outpatient Patient needs further study for microcytic hypochromic picture as an outpatient Discussed with the daughter [id number] Consultation Date/Type/Reason Admit Date/Time Jan 08, 2019 at 23:14 Initial Consult Date Date/Time of Note DATE: 01/11/19 TIME: 14:38 24 HR Interval Summary Constitutional: no complaints, improved Exam/Review of Systems Exam Vitals Vital Signs Date Temp Pulse Resp B/P (MAP) Pulse Ox O2 O2 Flow FiO2 Time Delivery Rate 01/11/19 97.9 78 16 177/87 98 Room Air 10:59 (117) Intake and Output 01/10/19 01/10/19 01/11/19 1515:00 23:00 07:00 IntakeIntake Total 480 ml BalanceBalance 480 ml Results Result Diagram: 01/11/19 0611 01/11/19 0611 Results 24hrs Laboratory Tests Test 01/11/19 06:11 White Blood Count 7.6 Red Blood Count 5.66 Hemoglobin 11.4 L Hematocrit 37.7 L Mean Corpuscular Volume 66.6 L Mean Corpuscular Hemoglobin 20.1 L Mean Corpuscular Hemoglobin Concent 30.2 L Red Cell Distribution Width 15.9 H Platelet Count 206 Mean Platelet Volume 9.6 Immature Granulocytes % 0.100 Neutrophils % 65.8 Lymphocytes % 25.6 Monocytes % 6.2 Eosinophils % 1.8 Basophils % 0.5 Nucleated Red Blood Cells % 0.0 Immature Granulocytes # 0.010 Neutrophils # 5.0 Lymphocytes # 1.9 Monocytes # 0.5 Eosinophils # 0.1 Basophils # 0.0 Nucleated Red Blood Cells # 0.0 Sodium Level 140 Potassium Level 3.9 Chloride Level 105 Carbon Dioxide Level 28 Anion Gap 7 Blood Urea Nitrogen 11 Creatinine 0.82 Est Glomerular Filtrat Rate mL/min > 60 Glucose Level 113 Calcium Level 8.9 Medications Medication Current Medications IV Flush (NS 3 ml) 3 ml PER PROTOCOL IV ; Start 01/08/19 at 21:00 Ondansetron HCl (Zofran Inj) 4 mg Q6H PRN IV NAUSEA/VOMITING Last administered on 01/08/19 22:32; Admin Dose 4 MG; Start 01/08/19 at 21:00 Acetaminophen (Tylenol Tab) 650 mg Q6H PRN PO .PAIN 1-3 OR TEMP; Start 01/08/19 at 21:00 Losartan Potassium (Cozaar) 100 mg DAILY PO Last administered on 01/11/19 09:31; Admin Dose 100 MG; Start 01/09/19 at 09:00 Nifedipine (Procardia Xl) 30 mg DAILY PO Last administered on 01/11/19 09:31; Admin Dose 30 MG; Start 01/09/19 at 09:00 Bisacodyl (Dulcolax) 5 mg DAILY PO Last administered on 01/11/19 09:31; Admin Dose 5 MG; Start 01/09/19 at 09:00 Docusate Sodium (Colace) 100 mg Q12H PO Last administered on 01/11/19 09:31; Admin Dose 100 MG; Start 01/09/19 at 09:00 Aspirin (Halfprin) 81 mg DAILY PO Last administered on 01/11/19 09:30; Admin Dose 81 MG; Start 01/09/19 at 14:30 Atorvastatin Calcium (Lipitor) 20 mg HS PO Last administered on 01/10/19 20:45; Admin Dose 20 MG; Start 01/09/19 at 21:00 Enoxaparin Sodium (Lovenox) 40 mg DAILY SC Last administered on 01/11/19 09: 32; Admin Dose 40 MG; Start 01/10/19 at 09:00 Pantoprazole (Protonix Tab) 40 mg BID@06,18 PO ; Start 01/11/19 at 12:30 RYAN RODRIGUEZ MD Jan 11, 2019 14:39
== END 2019-01-11 14:35 | disposition home or self-care (01) | DRG 392 ==
LOC: E/R 18:12 → TEL 19:59 → OBSVTOIN 23:14
PROVIDERS: ADMIT Family Medicine; ATTEND Internal Medicine
PROC: 0DB68ZX Excision of Stomach, Via Natural or Artificial Opening Endoscopic, Diagnostic (ICD-10-PCS; principal; 2019-01-10 15:30)
PROC: 0DJD8ZZ Inspection of Lower Intestinal Tract, Via Natural or Artificial Opening Endoscopic (ICD-10-PCS; 2019-01-10 15:30)
DX: K29.00 Acute gastritis without bleeding (principal); E87.1 Hypo-osmolality and hyponatremia; K55.1 Chronic vascular disorders of intestine; R55 Syncope and collapse; E86.0 Dehydration; K64.8 Other hemorrhoids; K64.4 Residual hemorrhoidal skin tags; K63.89 Other specified diseases of intestine; K59.09 Other constipation; R63.4 Abnormal weight loss; D50.9 Iron deficiency anemia, unspecified; I10 Essential (primary) hypertension; I73.9 Peripheral vascular disease, unspecified; E78.5 Hyperlipidemia, unspecified; K76.0 Fatty (change of) liver, not elsewhere classified; N28.9 Disorder of kidney and ureter, unspecified; Z87.891 Personal history of nicotine dependence
CPT/HCPCS: 36415; 70450; 71045; 72125; 75635; 76775; 80048; 80053; 80061; 81003; 82270; 82378; 82607; 82728; 82746; 83036; 83605; 83690; 83735; 83930; 83935; 84300; 84443; 84484; 85025; 85045; 85610; 85730; 86301; 88305; 88312; 93005; 93306; 93880; 93922; 99283; G0378; C9113; J1650; J2270; J2405; J7030; Q9967

== ENCOUNTER 2019-02-21 13:48 | Emergency (ER) | payer MEDICARE, OTHER ==
[~2019-02-21] VITALS: Ht 162.6 cm; Wt 61.2 kg
[~2019-02-21 13:48] MED LIST changes: +ACET-141 PO; +ACET1TAB40 PO; +ASPI-817 PO; +ATOR-2 PO; +BISA5TAB15 PO; +BISA5TAB6 PO; +CARV12.598 PO; +GABA100C14 PO; +IBUP-1542 PO; +MAGN400O19 PO; +OXYC-279 PO; +PANT40TA4 PO; +SULF1TAB31 PO
[2019-02-21 14:01] VITALS: Ht 162.6 cm; Wt 61.2 kg
[2019-02-21] MEDS ORDERED: SOD CHLORIDE 0.9% 1,000 ML IV STA (15:02)
[2019-02-21] MEDS ORDERED: ONDANSETRON 4 MG INJ IV STA (15:02)
[2019-02-21] MEDS ORDERED: KETOROLAC 15 MG INJ IV STA (15:02)
[2019-02-21 18:11] VITALS: BP 167/92; PULSE 55; RESP 15
== END 2019-02-21 18:20 | disposition home or self-care (01) ==
LOC: E/R 13:48
DX: R10.9 Unspecified abdominal pain (principal); I10 Essential (primary) hypertension; Z79.82 Long term (current) use of aspirin
CPT/HCPCS: 36415; 74176; 80053; 81003; 83690; 85025; 96361; 96374; 96375; 99285; J1885; J2405; J7030

== ENCOUNTER 2019-03-06 02:13 | Emergency (ER) | payer MEDICARE, OTHER ==
[~2019-03-06] VITALS: Ht 160 cm; Wt 63.6 kg
[~2019-03-06 02:13] MED LIST changes: -ATEN-51 PO; -HYDR25TA6 PO; -NIFE30TA43 PO; -POLY17PO6 PO
[2019-03-06 02:14] VITALS: Ht 160 cm; Wt 63.6 kg
[2019-03-06] MEDS ORDERED: morphine 4 MG/ML VIAL IV STA (03:36)
[2019-03-06] MEDS ORDERED: SOD CHLORIDE 0.9% 1,000 ML IV STA (03:36)
[2019-03-06] MEDS ORDERED: NA PHOSPHATE/BIPHOS 133 ML ENEMA PR ONE (05:00)
[2019-03-06] MEDS ORDERED: MAGNESIUM CITRATE 300 ML BTL PO ONE (05:30)
[2019-03-06 06:00] VITALS: BP 179/63; PULSE 72; RESP 22
== END 2019-03-06 06:00 | disposition home or self-care (01) ==
LOC: E/R 02:13
DX: M54.5 Low back pain (principal); I10 Essential (primary) hypertension; K59.00 Constipation, unspecified; Z79.82 Long term (current) use of aspirin
CPT/HCPCS: 36415; 74018; 80053; 81003; 85025; 96374; 99284; J2270; J7030

== ENCOUNTER 2019-03-08 23:48 | Emergency (ER) | payer MEDICARE, OTHER ==
[~2019-03-08] VITALS: Ht 162.6 cm; Wt 62.0 kg
[~2019-03-08 23:48] MED LIST changes: -ACET1TAB40 PO; +HYDR-4011 PO; +POLY17PO6 PO
[2019-03-08 23:51] VITALS: Ht 162.6 cm; Wt 62.0 kg
[2019-03-09] MEDS ORDERED: ONDANSETRON 4 MG INJ IV STA (01:15)
[2019-03-09] MEDS ORDERED: morphine 4 MG/ML VIAL IV STA (01:15)
[2019-03-09] MEDS ORDERED: MAGNESIUM CITRATE 300 ML BTL PO ONE (01:30)
[2019-03-09] MEDS ORDERED: TRIMETHOPRIM/SULFAMETHOX (DS) TAB PO ONE (03:30)
[2019-03-09 03:51] VITALS: BP 170/65; PULSE 79; RESP 17
== END 2019-03-09 04:10 | disposition home or self-care (01) ==
LOC: E/R 23:48
DX: N41.9 Inflammatory disease of prostate, unspecified (principal); I10 Essential (primary) hypertension; Z79.82 Long term (current) use of aspirin
CPT/HCPCS: 80053; 81003; 85025; 96374; 96375; 99284; J2270; J2405

== ENCOUNTER 2019-03-16 07:45 | Observation (INO) | payer MEDICARE, OTHER ==
[~2019-03-16] VITALS: Ht 162.6 cm; Wt 58.2 kg
[~2019-03-16 07:45] MED LIST changes: +ALPR0.25 PO; +BACL10TA PO; +DIC20 PO; +DOCU-144 PO; +HYDR25SU37 PR; +HYDR30CR92 PR; -OXYC-279 PO; +SENOKOTS PO; -SULF1TAB31 PO
[2019-03-16] MEDS ORDERED: ONDANSETRON 4 MG INJ IV STA (08:16)
[2019-03-16] MEDS ORDERED: HYDROmorphONE 1 MG/ML SYG IV STA (08:16)
[2019-03-16] MEDS ORDERED: HYDROmorphONE 2 MG/ML SYG IV STA (09:21)
[2019-03-16] MEDS ORDERED: IOHEXOL 300MG/ML 150 ML BTL ONE (09:33)
[2019-03-16] MEDS ORDERED: SOD CHLORIDE 0.9% 100 ML ONE (09:33)
[2019-03-16] MEDS ORDERED: KETOROLAC 15 MG INJ IV STA (10:17)
[2019-03-16] MEDS ORDERED: HALOPERIDOL 5 MG INJ IM ONE (11:00)
[2019-03-16] MEDS ORDERED: morphine 2 MG INJ IV PRN (11:00)
[2019-03-16] MEDS ORDERED: HYDROCODONE/APAP (5/325) TAB PO PRN (11:00)
[2019-03-16] MEDS ORDERED: LORAZEPAM 2 MG INJ IV ONE (11:00)
[2019-03-16] MEDS ORDERED: ONDANSETRON 4 MG INJ IV PRN ×2 (11:00)
[2019-03-16] MEDS ORDERED: NACL 0.9% 3 ML SYG IV SCH (11:00)
[2019-03-16] MEDS ORDERED: ACETAMINOPHEN 325 MG TAB PO PRN ×2 (11:00)
[2019-03-16] MEDS ORDERED: hydrALAzine 20 MG INJ IV PRN (11:30)
[2019-03-16 12:07] VITALS: BP 132/75; PULSE 75; RESP 19
[2019-03-16 12:23] VITALS: Ht 162.6 cm; Wt 58.2 kg
[2019-03-16] MEDS: LOSARTAN 50 MG TAB PO SCH (13:09)
[2019-03-16 14:00] VITALS: BP 178/84; PULSE 66; RESP 20
[2019-03-16] MEDS ORDERED: TAMSULOSIN (SR) 0.4 MG CAP PO ONE (19:50)
[2019-03-16] MEDS ORDERED: ATORVASTATIN 80 MG TAB ONE (19:50)
[2019-03-16 20:00] VITALS: BP 137/80; PULSE 66; RESP 18
[2019-03-16] MEDS ORDERED: TAMSULOSIN (SR) 0.4 MG CAP PO SCH (21:00)
[2019-03-16] MEDS ORDERED: ATORVASTATIN 80 MG TAB PO SCH (21:00)
[2019-03-17 02:00] VITALS: BP 120/65; PULSE 63; RESP 18
[2019-03-17] MEDS ORDERED: PANTOPRAZOLE (EC) 40 MG TAB PO ONE (05:04)
[2019-03-17] MEDS ORDERED: PANTOPRAZOLE (EC) 40 MG TAB PO SCH (07:00)
[2019-03-17] MEDS ORDERED: ASPIRIN (EC) 81 MG TAB PO SCH (09:00)
[2019-03-17] MEDS: LOSARTAN 50 MG TAB PO SCH (09:26)
[2019-03-17] MEDS ORDERED: DOCUSATE SODIUM 100 MG CAP PO PRN (10:00)
[2019-03-17] MEDS ORDERED: POLYETHYLENE GLYCOL 17 GM PACKET PO SCH (10:00)
[2019-03-17 14:00] VITALS: BP 157/89; PULSE 63; RESP 18
[2019-03-17] MEDS ORDERED: SENNA/DOCUSATE NA (8.6MG/50MG) TAB PO SCH (14:00)
[2019-03-17] MEDS ORDERED: IBUPROFEN 600 MG TAB PO PRN (14:00)
== END 2019-03-17 15:11 | disposition home or self-care (01) ==
LOC: E/R 07:45 → INTOOBSV 10:48 → PP2 10:48
PROVIDERS: ADMIT Internal Medicine; ATTEND Internal Medicine
DX: R10.30 Lower abdominal pain, unspecified (principal); K62.89 Other specified diseases of anus and rectum; I10 Essential (primary) hypertension; E78.5 Hyperlipidemia, unspecified; E78.00 Pure hypercholesterolemia, unspecified; N40.1 Benign prostatic hyperplasia with lower urinary tract symptoms; R33.8 Other retention of urine; Z72.0 Tobacco use; K59.00 Constipation, unspecified; K29.70 Gastritis, unspecified, without bleeding; K64.9 Unspecified hemorrhoids; I70.209 Unspecified atherosclerosis of native arteries of extremities, unspecified extremity; Z79.82 Long term (current) use of aspirin; I71.9 Aortic aneurysm of unspecified site, without rupture; F41.9 Anxiety disorder, unspecified
CPT/HCPCS: 36415; 51702; 74177; 80048; 80053; 80061; 81003; 83036; 83735; 84443; 85025; 96374; 96375; 96376; 99285; G0378; J1170; J1885; J2060; Q9967; 99217